=== PATIENT | male | born 1935 | race Hispanic/Latino ===

== ENCOUNTER 2016-08-12 06:44 | Day surgery (SDC) | payer MEDICARE, BC ==
[2015-11-27 10:29] VITALS: BMI 25.0
[2016-08-12 07:31] LABS: INR 1.1 (0.93-1.08); PARTIAL THROMBOPLASTIN TIME 30.1 Seconds (23.7-30.8)
[2016-08-12] MEDS ORDERED: cefTRIAXone 1 gm 100 ML IVPB STA (09:47)
[2016-08-12] MEDS ORDERED: cefTRIAXone (Rocephin) 1 gm Inj ONE (09:49)
[2016-08-12] MEDS ORDERED: Midazolam 2 MG/2 ML VIAL ONE (10:17)
[2016-08-12] MEDS ORDERED: Propofol 10 mg/ml Inj (20 ML) ONE (10:17)
[2016-08-12] MEDS ORDERED: Lactated Ringer's 1,000 ML IV SCH (11:15)
[2016-08-12 11:39] VITALS: O2SAT 98
--- NOTE | 2016-08-12 11:46 | OP ---
PROCEDURE DATE: 08/12/2016 PREOPERATIVE DIAGNOSES: Urethral stricture, bladder tumor history. POSTOPERATIVE DIAGNOSES: Urethral stricture, bladder tumor history. 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 PROCEDURE: Urethral dilatation, excision and fulguration of bladder tumor greater than 5 cm. SURGEON: Chris Alexandre M.D. ANESTHESIA: General endotracheal. DESCRIPTION OF OPERATION: After adequate general endotracheal anesthesia was given, the patient was placed in lithotomy, prepped and draped in usual manner. The patient had previously been known to buchanan ve a very small opening in his urethra from his stricture. I used a 7-Maldivian semi-rigid ureteroscope to introduce directly through the urethra. I could see the small opening. I could navigate through the small stricture with the ureteroscope, through the prostatic urethra into the bladder. Once in the bladder, a sensor wire 0.035 was passed through the ureteroscope and the ureteroscope was removed . A wire was then backloaded onto a 17-Maldivian cystourethroscope and I then used this to gently dilat e the stricture, enabling the 17-Maldivian scope to go into the bladder. Inspection of the bladder show ed a single effluxing right ureteral orifice with clear efflux, the patient having had a previous lef t nephroureterectomy. There were what appeared to be some low grade bladder tumors in the posterior wall, the anterior wall, the left lateral wall. The total area was over 5 cm. They did not appear l arge and papillary, but rather easily amenable to fulguration. There were some question or erythemat ous areas. This was biopsied and all the remaining visible bladder tumors were also fulgurated until they were completely removed with no visible tumor remaining. All irrigation fluid placed in the bl adder was returned. The abdomen was soft. There was no evidence of any bleeding. I might add, prio r to doing the fulguration and biopsy, I replaced the 17 Maldivian with a 22-Maldivian cystourethroscope wh ich was able to be passed through the strictured area since it had already been dilated. The above c omments about the operation itself were done through the 22-Maldivian cystourethroscope. Once the proce dure was completed, I could see the right orifice effluxing clear urine. A sensor wire was then pass ed through the 22-Maldivian cystourethroscope. The cystoscope was removed and an 18-Maldivian te-moak 2-wa y Sims was advanced over the sensor wire into the bladder with return of clear irrigant fluid. The wire was removed. The balloon was inflated. The patient was awakened and brought to recovery room i n good condition. Chris Alexandre MD cc: [id number] TT: 08/12/2016 11:45:43 tn
[2016-08-12 12:29] VITALS: TEMP 97.6
--- NOTE | 2016-08-12 12:31 | CON ---
DATE: 08/12/2016 HISTORY OF PRESENT ILLNESS: This 81-year-old male is admitted to the [facility] same day surgical area for further evaluation of hematuria with a history of bladder cancer, urethral strictu re and inability for Dr. Alexandre to do an outpatient cystoscopy in his office secondary to recurrent ure thral stricture. The patient has a past medical history of chronic hypertension, stable atherosclero tic heart disease, hyperlipidemia, allergic rhinitis, and history of kidney cancer with nephrectomy, history of prostate cancer and bladder cancer. He follows with Dr. Chris Alexandre, his urologist, who on recent office evaluation was unable to do an office cystoscopy to further evaluate his bladder can cer secondary to urethral stricture. The patient is admitted for further evaluation of the above. REVIEW OF SYSTEMS: HEAD: No headache or seizures. EYES: No change in visual acuity. EARS: No hearing loss. THROAT: No swallowing difficulty. NECK: No stiffness. CARDIOVASCULAR: History of stable atherosclerotic heart disease and chronic hypertension. No chest pain, no palpitation. PULMONARY: No cough, no hemoptysis. GASTROINTESTINAL: No hematemesis, no melena. GENITOURINARY: As per HPI. VASCULAR: No claudication. PSYCHOLOGICAL: No depression. NEUROLOGICAL: No knowledge of stroke. HEMATOLOGICAL: History of platelet clumping. The patient follows with Dr. Corky Marcum for this issue . OUTPATIENT MEDICATIONS: Include Lasix 40 mg p.o. daily, Flomax 0.4 mg p.o. daily, Zocor 20 mg p.o. d aily, metoprolol tartrate 50 mg b.i.d., Monopril 20 mg p.o. b.i.d., Flonase 1 spray to nostrils daily p.r.n. ALLERGIES: No known allergies to medication. SOCIAL HISTORY: He is a nondrinker, nonsmoker. 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 FAMILY HISTORY: Noncontributory. PHYSICAL EXAMINATION: VITAL SIGNS: Temperature 97.6, respirations 20, pulse 61, blood pressure 147/95 with a pulse ox of 9 7% on room air. HEENT: Head is normocephalic, atraumatic. Eyes: No icterus. Ears clear. Throat not injected. NECK: Supple. HEART: Regular S1, S2. No pathological rubs, murmurs, or gallops. LUNGS: Clear to auscultation. ABDOMEN: Soft, nontender, no palpable organomegaly, no rebound, no guarding, or tenderness. EXTREMITIES: No clubbing, no cyanosis, no edema. SKIN: Without rash. NEUROLOGIC: Intact. PSYCHOLOGICAL: Alert. VASCULAR: Legs warm to touch. LABORATORY DATA: PT/INR 1.10, PTT 30.1. White count 6000, hemoglobin 14.8, hematocrit 44.2, platele ts 96,000. Sodium 141, K 4.0, chloride 105, bicarbonate 28, BUN 23, creatinine 1.5, random blood sug ar was 99. All liver function testing was normal including bilirubin 1.0, AST 19, ALT 31, alkaline p hosphatase 55. EKG showed sinus rhythm with nonspecific ST-T wave changes. Chest x-ray showed no ac tive disease. IMPRESSION AND PLAN: An 81-year-old male with history of nephrectomy for renal cancer, history of bl adder cancer, history of prostate cancer, now with need for cystoscopy for surveillance of his bladde r cancer which was unable to be performed in Dr. Chris Alexandre's outpatient urological office secondar y to recurrent urethral stricture. The patient with comorbidities of benign prostate hypertrophy, hy perlipidemia, chronic hypertension, allergic rhinitis, stable atherosclerotic heart disease and plate let clumping. Of note, the platelet count has been reviewed by Dr. Corky Marcum from hematology who has cleared the patient for his cystoscopy today. The patient will undergo a urethral stricture dilatat ion, cystoscopy, and further recommendations will be reviewed with Dr. Chris Alexandre upon completion o f his testing today. The patient will continue on outpatient medications as outlined and I will foll ow his progress with Dr. Alexandre and Dr. Marcum. Diann Reyna MD cc: [phone] TT: 08/12/2016 12:30:31 Confirmation # [id number] Dictation # [id number] jay
[2016-08-12 13:58] VITALS: BP 147/75; PULSE 70; RESP 18
== END 2016-08-12 14:45 | disposition home or self-care (01) ==
LOC: SDS 06:44
PROVIDERS: ATTEND Urology
DX: C67.3 Malignant neoplasm of anterior wall of bladder (principal); C67.2 Malignant neoplasm of lateral wall of bladder; C67.4 Malignant neoplasm of posterior wall of bladder; N35.9 Urethral stricture, unspecified; E78.5 Hyperlipidemia, unspecified; I10 Essential (primary) hypertension; I25.10 Atherosclerotic heart disease of native coronary artery without angina pectoris; J30.9 Allergic rhinitis, unspecified; N40.0 Benign prostatic hyperplasia without lower urinary tract symptoms; Z85.46 Personal history of malignant neoplasm of prostate; Z85.528 Personal history of other malignant neoplasm of kidney; Z90.5 Acquired absence of kidney; Z85.51 Personal history of malignant neoplasm of bladder; D69.1 Qualitative platelet defects; I25.2 Old myocardial infarction
CPT/HCPCS: 36415; 52240; 85610; 85730; 88108; 88305; J0696; J2250; J2704; J3010; J7120 ×2

== ENCOUNTER 2017-04-14 06:55 | Day surgery (SDC) | payer MEDICARE, BC ==
[2017-04-14] MEDS ORDERED: cefTRIAXone (Rocephin) 1 gm Inj ONE (10:43)
[2017-04-14] MEDS ORDERED: Lidocaine 2% Jelly (Uro-Jet) ONE (10:43)
[2017-04-14] MEDS ORDERED: Propofol 10 mg/ml Inj (20 ML) ONE (10:44)
[2017-04-14] MEDS ORDERED: Morphine 2 mg/ml ISec IVP PRN (11:29)
[2017-04-14] MEDS ORDERED: Lactated Ringer's 1,000 ML IV SCH (11:30)
[2017-04-14 12:50] VITALS: TEMP 97.9
[2017-04-14 12:57] VITALS: BMI 25.0
[2017-04-14 13:22] VITALS: BP 160/69; PULSE 74; RESP 20; O2SAT 99
--- NOTE | 2017-04-14 23:29 | OP ---
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 SURGEON: Chris Alexandre MD TYPE OF ANESTHESIA: LMA. DESCRIPTION OF OPERATION: After adequate LMA anesthesia was given, the patient was placed in lithotomy, prepped and draped in the usual manner. I used a 7-Mauritian urethroscope that was advanced through the urethra. There was a pinpoint opening in the bulbous urethra. I was able to go through that opening through the prostatic urethra into the bladder. It was difficult to total visualize the bladder with a small urethroscope, but there was visible recurrence of tumor on the right floor. I then passed a sensor wire through the urethroscope, removed the urethroscope and attempted to pass a 17-Mauritian cystoscope to dilate the stricture under direct vision, but it was too stenotic. At this point, I removed the 17-Mauritian scope. I re-cystoscoped the patient with the urethroscope showed that the sensor wire was in good location, removed the 7-Mauritian urethroscope and then took a 12-Mauritian Sims catheter and took a small coring from its distal tip, so I could slide it over the sensor wire and was able to push it through the strictured area, it was a little tight but went through into the bladder with retain of the clear irrigant fluid. The balloon was inflated. The sensor wire was removed. The catheter was draining clear pura urine. The patient was awakened and brought to recovery room in good condition. Chris Alexandre MD
--- NOTE | 2017-04-14 23:58 | CON ---
DATE: 04/14/2017 REASON FOR EVALUATION: Medical clearance and management. HISTORY OF PRESENT ILLNESS: This 81-year-old male was examined at his bedside. He is on schedule for elective cystoscopy in the setting of recurrent urethral stricture and recurrent bladder cancer. The patient has multiple medical problems including chronic hypertension, atherosclerotic heart disease and chronic mild thrombocytopenia. The patient has undergone hematological workup with Dr. Corky Marcum in the past and he has been found to have large platelets and clumping as a cause of his thrombocytopenia. Of note, the patient has no spontaneous bleeding episodes. He is followed chronically by Dr. Chris Alexandre from Urology because of issues with renal cell cancer and nephrectomy in his past as well as prostate cancer and recurrent bladder cancer. The patient also has history of recurrent urethral stricture that manifests with difficulty in urination. The patient at present denies any gross hematuria and has had difficulties with outpatient cystoscopy in Urology office due to recurrent urethral stricture. PAST MEDICAL HISTORY: Also, significant for hyperlipidemia, allergic rhinitis as well as chronic hypertension and stable atherosclerotic heart disease, hyperlipidemia and chronic benign thrombocytopenia. REVIEW OF SYSTEMS: HEAD REVIEW: There are no headache or seizures. EYE REVIEW: No change in visual acuity. EAR REVIEW: No hearing loss. THROAT REVIEW: No swallowing difficulty. NECK REVIEW: No stiffness. CARDIOVASCULAR REVIEW: He has a history of stable atherosclerotic heart disease, chronic hypertension. There has been no chest pain, no palpitation. PULMONARY REVIEW: No cough. No hemoptysis. GI: No hematemesis. No melena. : As per HPI. VASCULAR: No claudication. PSYCHOLOGICAL: No depression. NEUROLOGICAL: No knowledge of stroke. HEMATOLOGICAL: He has a history of platelet clumping and follows with Dr. Corky Marcum test development engineer regarding this issue. OUTPATIENT MEDICATIONS: Include Lasix 40 mg p.o. daily, Flomax 0.4 mg p.o. daily, Zocor 20 mg p.o. daily, metoprolol tartrate 50 mg p.o. b.i.d., Monopril 20 mg b.i.d. and Flonase 1 spray to nostrils daily p.r.n. ALLERGIES: HE HAS NO KNOWN ALLERGIES TO MEDICATIONS. SOCIAL HISTORY: He is a current nondrinker, nonsmoker, non IV drug misuser. 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 FAMILY HISTORY: Noncontributory. PHYSICAL EXAMINATION: VITAL SIGNS: Temperature 97.9, respirations 18, pulse 63, blood pressure 141/78. Pulse ox 99% room air. HEAD: Normocephalic, atraumatic. EYES: No icterus. EARS: Clear. THROAT: Noninjected. NECK: Supple. HEART: Regular S1, S2. LUNGS: Clear. ABDOMEN: Soft. EXTREMITIES: No clubbing, no cyanosis, no edema. SKIN: Without rash. NEUROLOGIC: Intact. PSYCHOLOGIC: Alert. VASCULAR: Legs warm to touch. LABORATORY DATA: White count 6400, hemoglobin 15.1, hematocrit 46.0, platelets 92,000. Sodium 144, K 4.1, chloride 107, bicarb 27, BUN 25, creatinine 1.6, random blood sugar 98. Bilirubin 0.9, AST 20, ALT 26, alk phos 60. DIAGNOSTIC DATA: EKG showed normal sinus rhythm with a pulse rate of 63. IMPRESSION: An 81-year-old male with multiple medical problems as listed above, now on schedule for elective cystoscopy and dilatation of the urethral stricture as well as evaluation for recurrent bladder cancer in this gentleman with history of bladder cancer, urethral stricture, nephrectomy for renal cell cancer of the kidney as well as prostate cancer and comorbidities of atherosclerotic heart disease, hyperlipidemia, hypertension, chronic obstructive pulmonary disease and allergic rhinitis. PLAN: The plan is to proceed with cystoscopy, urethral dilatation, he may require a Sims catheter. Postprocedure, the patient will most likely be given postprocedure antibiotics while he has his indwelling Sims catheter and will be monitored by my office as an outpatient. All of the above was reviewed in detail with the patient and nursing and all questions were answered. Diann Reyna MD MTDOriana
== END 2017-04-14 15:35 | disposition home or self-care (01) ==
LOC: SDS 06:55
PROVIDERS: ATTEND Urology
DX: N35.9 Urethral stricture, unspecified (principal); D69.6 Thrombocytopenia, unspecified; E78.5 Hyperlipidemia, unspecified; I10 Essential (primary) hypertension; I25.10 Atherosclerotic heart disease of native coronary artery without angina pectoris; Z85.528 Personal history of other malignant neoplasm of kidney; Z85.51 Personal history of malignant neoplasm of bladder; Z85.46 Personal history of malignant neoplasm of prostate; Z90.5 Acquired absence of kidney; Z92.3 Personal history of irradiation; J30.9 Allergic rhinitis, unspecified; J44.9 Chronic obstructive pulmonary disease, unspecified
CPT/HCPCS: 52281; J0696; J2270; J2405; J2704; J3010; J7120

== ENCOUNTER 2017-05-18 06:57 | Day surgery (SDC) | payer MEDICARE, BC ==
[2017-05-11 12:20] VITALS: BMI 26.6
[2017-05-18] MEDS ORDERED: Propofol 10 mg/ml Inj (20 ML) ONE (10:12)
[2017-05-18] MEDS ORDERED: cefTRIAXone (Rocephin) 1 gm Inj ONE (10:24)
[2017-05-18] MEDS ORDERED: Gentamicin 80mg/50ml NS 80 MG/50 ML BAG IVPB ONE (11:06)
[2017-05-18] MEDS ORDERED: Gentamicin IV 80mg/50ml NS(PREMIX) IVPB ONE (11:10)
[2017-05-18] MEDS ORDERED: HYDROmorphone 0.5 mg/0.5 ml ISec IVP PRN (11:29)
[2017-05-18] MEDS ORDERED: Lactated Ringer's 1,000 ML IV SCH (11:30)
[2017-05-18] MEDS ORDERED: HYDROmorphone 0.5 mg/0.5 ml ISec ONE ×2 (11:58→12:33)
[2017-05-18] MEDS ORDERED: HYDROmorphone 0.5 mg/0.5 ml ISec IVP ONE ×2 (12:00→12:35)
[2017-05-18 13:16] VITALS: RESP 20
--- NOTE | 2017-05-18 13:38 | HP ---
PROPOSED PROCEDURE: Cystoscopy, transurethral resection of bladder tumor. PREOPERATIVE DIAGNOSIS: Bladder tumor. HISTORY AND PHYSICAL: This is an 81-year-old male originally seen by Dr. Alexandre who diagnosed a bladder tumor. However, the patient had a severe urethral stricture, and he was unable to pass the cystoscope. The patient has then had serial soft dilations with increasing size Sims catheters and presents now for further cystoscopy and possible transurethral resection of bladder tumor. PAST MEDICAL HISTORY: Significant for hypertension, atherosclerotic heart disease. MEDICATIONS FROM HOME: Include Cardizem, Flomax, fluticasone propionate, fosinopril, Lasix, metoprolol and Zocor. ALLERGIES: NO KNOWN DRUG ALLERGIES. PHYSICAL EXAMINATION: GENERAL: He is well nourished in no acute distress. NECK: Supple. CARDIAC: Shows positive S1, S2. EXTREMITIES: No edema. LUNGS: Respiratory effort is normal. ABDOMEN: Benign. GENITOURINARY: Sims in place draining clear. Phallus is normal. Scrotum is normal. IMPRESSION: The patient has been medically cleared for procedure by Dr. Gandhi. The plan is to proceed with cystoscopy and possible resection of bladder tumor. Ascencion Lara MD
[2017-05-18 14:31] VITALS: TEMP 97.5
[2017-05-18 15:43] VITALS: BP 137/68; PULSE 67; O2SAT 98
--- NOTE | 2017-05-19 08:16 | OP ---
PROCEDURE DATE: 05/18/2017 PREOPERATIVE DIAGNOSIS: Bladder tumor, urethral stricture. POSTOPERATIVE DIAGNOSIS: Bladder tumor, urethral stricture. PROCEDURE: Cystoscopy, transurethral resection of large bladder tumor, fulguration of large bladder tumors. SURGEON: Ascencion Lara MD TYPE OF ANESTHESIA: General. SPECIMENS: Bladder tumor chips were sent to Pathology. DRAINS: A 22-Beninese 3-way Sims catheter. COMPLICATIONS: There were none. DESCRIPTION OF PROCEDURE: After informed consent was obtained, the patient was taken to the operating room, placed on the operating table, anesthesia was administered. The patient received intravenous antibiotics prior to start of the procedure. The patient had a history of a urethral stricture and has been having a soft dilation. Currently had a 20-Beninese Sims catheter in place, which was removed prior to the procedure. A cystoscopy was first performed with a 22-Beninese cystoscope, it was placed in the patient's urethra, advanced proximally under direct vision. The urethral stricture in the prostatic urethra was noted. There was a small false passage as well underneath into the prostate. The urethra was opened and the cystoscope was able to be passed through the strictured area and into the bladder. Bladder was drained and then a full survey inspection was performed. There were multiple large papillary tumors located on the right posterior and lateral wall extending upward. There was a large tumor burden on the dome on the posterior and left posterior deal. The right ureteral orifice could be visualized and appeared clear. The left ureteral orifice could be visualized just adjacent to a papillary tumor. There was also apparent catheter reaction throughout the bladder. There was no tumor noted in the urethra with the strictured area. At this point, the cystoscope was withdrawn. A 26-Beninese resectoscope with a visualizing obturator was able to be passed into the bladder. The visualizing obturator was removed and a working loop was passed. Using the loop, the large amounts of tumor were resected down into the muscle layer at the dome and posterior wall as well as the right and left lateral deal. In total, there was over 6 cm area of tumor involving the bladder. During the resection any bleeding points encountered were controlled using electrocautery. When all visible tumor had been resected, bladder was irrigated and the chips were removed and sent to Pathology as specimen. The loop was changed to a rollerball electrode. The base of the tumor was then cauterized using rollerball electrode as well as any surrounding mucosa. There were multiple small areas of flat, slightly raised papillary tumor, which appeared low grade. This was also cauterized using the rollerball electrode. The bladder was then copiously irrigated and inspection was made for any bleeding points. Again bleeding points were controlled using the electrocautery with the rollerball. Final inspection revealed no remaining untreated tumor. There was good hemostasis. At this point, the procedure was completed, the bladder was drained. The cystoscope was removed. A 22-Beninese 3-way Sims catheter was passed and placed for continuous bladder irrigation. The patient tolerated procedure well. He was taken to the recovery room awake in stable condition. Ascencion Lara MD
--- NOTE | 2017-05-19 08:23 | CON ---
DATE: 05/18/2017 HISTORY OF PRESENT ILLNESS: This 81-year-old male was admitted to [facility] for elective cystoscopy and replacement of Sims catheter in the setting of urethral stricture and bladder cancer. The patient has a past medical history of left kidney resection for renal carcinoma, prostate cancer, bladder cancer and is under the ongoing urological followup with Dr. Chris Alexandre and Dr. Ascencion Lara. The patient recently was scheduled for cystoscopy for bladder cancer surveillance; however, this could not be accomplished because of the urethral stricture and the patient has had Sims catheters changed as an outpatient in the Urology office to allow passage of a cystoscope. The patient is admitted today for evaluation of the above. PAST MEDICAL HISTORY: Significant for chronic hypertension, stable atherosclerotic heart disease, hyperlipidemia and sinusitis. MEDICATIONS: The patient's outpatient medications include Cardizem, Flomax, Zocor, metoprolol, Lasix, Monopril and Flonase. ALLERGIES: The patient has no known allergies to medication. SOCIAL HISTORY: Current nondrinker, nonsmoker, non IV drug misuser. FAMILY HISTORY: Noncontributory. REVIEW OF SYSTEMS: HEAD: No headache or seizure. EYES: No change in visual acuity. EARS: No hearing loss. THROAT: No swallowing difficulty. NECK: No stiffness. CARDIAC: He has history of chronic atherosclerotic heart disease, stable and hypertension. PULMONARY: No cough. No hemoptysis. GI: No gastroesophageal reflux disease. : As per HPI. VASCULAR: No claudication. PSYCHOLOGICAL: Chronic anxiety. NEUROLOGICAL: No knowledge of stroke. HEME: Chronic thrombocytopenia secondary to platelet clumping. PHYSICAL EXAMINATION: VITAL SIGNS: Temperature 97.8, respirations 18, pulse 65, blood pressure 142/77, pulse ox 96% room air. HEAD: Normocephalic, atraumatic. EYES: No icterus. EARS: Clear. THROAT: Noninjected. NECK: Supple. HEART: Regular S1, S2. LUNGS: Clear. ABDOMEN: Soft. EXTREMITIES: No edema. SKIN: Without rash. NEUROLOGICAL: Intact. PSYCHOLOGICAL: Alert. VASCULAR: Legs warm to touch. LABORATORY DATA: White count 6400, hemoglobin 15.1, hematocrit 46.0, platelets 92,000. History of platelet clumping in the past with a normal manual platelet count under workup by Dr. Corky Marcum. Sodium 144, K 4.1, chloride 107, bicarb 27, BUN 25, creatinine 1.6, random blood sugar 98. All liver function testing was normal including bilirubin 0.9, AST 20, ALT 26 and alk phos 60. DIAGNOSTIC DATA: EKG showed a normal sinus rhythm, nonspecific ST-T wave changes, pulse 63. IMPRESSION AND PLAN: An 81-year-old male with history of urethral stricture, bladder cancer, history of kidney cancer, prostate cancer, now on schedule for cystoscopy and Sims catheter replacement with comorbidities as listed above. As discussed with the patient, he will be followed in my medical office postprocedure and to follow up with Dr. Ascencion Lara regarding recommendations post cystoscopy and instructions for Sims catheter. All of the above was discussed in detail with the patient, nursing. All questions were answered Diann Reyna MD ENIO
== END 2017-05-18 15:45 | disposition home or self-care (01) ==
LOC: SDS 06:57
PROVIDERS: ATTEND Urology
DX: C67.1 Malignant neoplasm of dome of bladder (principal); N35.9 Urethral stricture, unspecified; I10 Essential (primary) hypertension; E78.5 Hyperlipidemia, unspecified; I25.10 Atherosclerotic heart disease of native coronary artery without angina pectoris; Z85.46 Personal history of malignant neoplasm of prostate; Z85.528 Personal history of other malignant neoplasm of kidney
CPT/HCPCS: 52240; 88307; J0696; J1170; J1580; J2405; J2704; J3010; J7120 ×2

== ENCOUNTER 2017-06-12 13:24 | Inpatient (IN) | payer MEDICARE, BC ==
--- NOTE | 2017-06-12 13:34 | ED PDOC ---
Arrival/HPI - General Chief Complaint: Male Genitourinary - History of Present Illness Narrative History of Present Illness (Text): 06/12/17 13:33 Pt is a 82 yo M with PMH of HTN, CAD, HLD, left kidney resection for renal carcinoma, prostate CA, and bladder CA presents to ED with hematuria. Pt states that about 1 month ago he underwent cystoscopy with excision of bladder tumor. Pt states he had some hematuria post procedure but that eventually resolved. Pt states that hematuria has been on going for the past 2 days and for the last day he has also had suprapubic pain. Reyna was placed in the ED with evacuation of clots. Pt denied CP, SOB, n/v/d, abdominal pain, fevers, chills, HOLCOMB, or dizziness. PMD: Axel Uro: Jane ([place]) Past Medical History - Infectious Disease Hx of Infectious Diseases: None - Cardiac Hx Pacemaker: No - Pulmonary Hx Respiratory Disorders: No Hx Asthma: No Hx Chronic Obstructive Pulmonary Disease (COPD): No Hx Emphysema: No - Neurological Hx Paralysis: No - Renal Hx Renal Disorder: Yes - Hematological/Oncological Hx Blood Transfusions: No - Musculoskeletal/Rheumatological Hx Musculoskeletal Disorders: No (DUE TO PLANNED ANESTHESIA) - Gastrointestinal Hx Gastroesophageal Reflux: No - Psychiatric Hx Emotional Abuse: No Hx Physical Abuse: No Hx Substance Use: No - Anesthesia Hx Anesthesia Reactions: Yes (NAUSEA/VOMITING-RECEIVES ZOFRAN PRIOR TO PROCEDURES) Hx Malignant Hyperthermia: No - Suicidal Assessment Feels Threatened In Home Enviroment: No Family/Social History Family/Social History: No Known Family HX Smoking Status: Never Smoked Hx Alcohol Use: No Hx Substance Use: No Hx Substance Use Treatment: No Allergies/Home Meds Allergies/Adverse Reactions: Allergies No Known Allergies Allergy (Verified 11/12/15 09:38) Home Medications: Home Meds Medication Instructions Recorded Confirmed RX: Fluticasone Propionate 0.05 mg NS DAILY 11/12/15 05/18/17 RX: Fosinopril Sodium 20 mg PO BID 11/12/15 05/18/17 RX: Furosemide 40 mg PO DAILY 11/12/15 05/18/17 RX: Metoprolol Tartrate 50 mg PO BID 11/12/15 05/18/17 RX: Simvastatin 20 mg PO QPM 11/12/15 05/18/17 Tamsulosin HCl [Flomax] 0.4 mg PO QPM 11/12/15 05/18/17 [id number] CD [Cardizem CD] 240 mg PO DAILY 04/08/17 05/18/17 Nitrofurantoin Macrocrystals 100 mg PO BID 05/18/17 05/18/17 [Macrobid] Review of Systems - Review of Systems Constitutional: Normal Eyes: Normal ENT: Normal Respiratory: Normal Cardiovascular: Normal Gastrointestinal: Abdominal Pain (suprapubic) Genitourinary Male: Hematuria Musculoskeletal: Normal Skin: Normal Neurological: Normal Endocrine: Normal Hemo/Lymphatic: Normal Psychiatric: Normal Physical Exam Temperature: Afebrile Blood Pressure: Normal Pulse: Regular Respiratory Rate: Normal Mental Status: Positive for: Alert and Oriented X 3 - Systems Exam Head: Present: Atraumatic, Normocephalic Extroacular Muscles: Present: EOMI Conjunctiva: Present: Normal Mouth: Present: Moist Mucous Membranes Respiratory/Chest: Present: Clear to Auscultation. No: Accessory Muscle Use, Wheezes, Rales, Rhonchi Cardiovascular: Present: Regular Rate and Rhythm, Normal S1, S2. No: Murmurs, Rub, Gallop Abdomen: Present: Tenderness (suprapubic). No: Distention, Peritoneal Signs, Rebound, Guarding Genitourinary Male: Present: Other (Dark red urine per reyna catheter. Visible clots on seen on bladder irrigation.) Upper Extremity: Present: Normal Inspection Lower Extremity: Present: Normal Inspection Neurological: Present: GCS=15 Skin: Present: Warm, Dry, Normal Color Psychiatric: Present: Alert, Oriented x 3 Vital Signs Temp Pulse Resp BP Pulse Ox 06/12/17 13:24 98.4 F 81 20 172/91 H 94 L Medical Decision Making ED Course and Treatment: 06/12/17 15:[address] Osullivan, patient's urologist, agrees with CBI. Requests dose of antibiotics and recommends patient be kept under observation while patient is under PCP. (Valeriy Smalls) 06/12/17 14:33 Assessment: Pt is an 82 yo M presents to ED with hematuria and suprapubic pain found to have clots after bladder irrigation. Plan: - CBC - CMP - Coags - CXR - EKG - Urinalysis - IVF 06/12/17 15:[address] Lara, requests patient to be admitted under PMD. Continue CBI. Ceftriaxone IV. 06/12/17 15:[address] Reyna, agrees with Dr. Lara's assessment and accepts patient under her service. Requests blood and urine culture x1. ([place]) - Lab Interpretations Lab Results: 06/12/17 14:17 06/12/17 14:17 Lab Results 06/12/17 14:17: PT 12.4, INR 1.09 H, APTT 28.3 06/12/17 14:17: WBC 6.3, RBC 4.68, Hgb 13.5 L, Hct 42.3, MCV 90.4, MCH 28.8, MCHC 31.9, RDW 13.9, Plt Count 77 L, MPV 11.9 H, Gran % 82.8 H, Lymph % (Auto) 9.9 L, [place] % (Auto) 5.6, Eos % (Auto) 1.4 L, Baso % (Auto) 0.3, Gran # 5.17, Lymph # (Auto) 0.6 L, [place] # (Auto) 0.4, Eos # (Auto) 0.1, Baso # (Auto) 0.02 06/12/17 14:17: Sodium 143, Potassium 3.8, Chloride 105, Carbon Dioxide 25, Anion Gap 17, BUN 20, Creatinine 1.5, Est GFR ( Amer) 54, Est GFR (Non- Af Amer) 45, Random Glucose 159 H, Calcium 9.2, Magnesium 2.3 H, Total Bilirubin 0.7, AST 19, ALT 21, Alkaline Phosphatase 55, Total Protein 6.2, Albumin 3.6, Globulin 2.6, Albumin/Globulin Ratio 1.3 - RAD Interpretation Radiology Orders: 06/12/17 13:52 CXR [CHEST PORTABLE] [RAD] Stat - Medication Orders Current Medication Orders: Sodium Chloride (Sodium Chloride 0.9%) 1,000 mls @ 80 mls/hr IV .[id number] GUILLERMINA Last Admin: 06/12/17 15:16 Dose: 80 mls/hr eMAR Start Stop Document 06/12/17 15:16 LA (Rec: 06/12/17 15:25 LA [facility] [id number]) Intravenous Solution Start Date 06/12/17 Start Time 15:25 Ceftriaxone Sodium (Rocephin 1 Gram Ivpb) 1 gm in 100 mls @ 100 mls/hr IVPB ONCE ONE PRN Reason: Protocol Stop: 06/13/17 16:30 Discontinued Medications Oxycodone/Acetaminophen (Percocet 5/325 Mg Tab) 1 tab PO STAT STA Stop: 06/12/17 16:48 Disposition/Present on Arrival - Present on Arrival Any Indicators Present on Arrival: No History of DVT/PE: No History of Uncontrolled Diabetes: No Urinary Catheter: Yes History of Decub. Ulcer: No History Surgical Site Infection Following: None - Disposition Have Diagnosis and Disposition been Completed?: Yes Disposition Time: 16:54 - Disposition Diagnosis: Hematuria Condition: STABLE
[2017-06-12 14:41] LABS: BASO # 0.02 K/mm3 (0.0-2.0); BASO % 0.3 % (0.0-3.0); EOS # 0.1 (0.0-0.7); EOS % 1.4 % (1.5-5.0); GRAN # 5.17 (1.4-6.5); GRAN % 82.8 % (50.0-68.0); HEMOGLOBIN 13.5 g/dL (14.0-18.0); LYMPH # 0.6 (1.2-3.4); LYMPH % 9.9 % (22.0-35.0); MEAN CELL VOLUME 90.4 fl (80.0-105.0); MEAN CORPUSCULAR HEMOGLOBIN 28.8 pg (25.0-35.0); MEAN CORPUSCULAR HGB CONC 31.9 g/dl (31.0-37.0); MEAN PLATELET VOLUME 11.9 fl (7.0-11.0); MONO # 0.4 (0.1-0.6); MONO % 5.6 % (1.0-6.0); RBC 4.68 10^6/uL (3.5-6.1); RED CELL DISTRIBUTION WIDTH 13.9 % (11.5-14.5); WHITE BLOOD COUNT 6.3 10^3/ul (4.5-11.0)
[2017-06-12 14:51] LABS: ALB/GLOB RATIO 1.3 (1.1-1.8); ALBUMIN 3.6 g/dL (3.0-4.8); CALCIUM 9.2 mg/dL (8.4-10.5); MAGNESIUM 2.3 mg/dL (1.7-2.2)
[2017-06-12 14:52] LABS: INR 1.09 (0.93-1.08); PARTIAL THROMBOPLASTIN TIME 28.3 Seconds (25.1-36.5); PROTHROMBIN TIME 12.4 SECONDS (9.4-12.5)
[2017-06-12] MEDS: Sodium Chloride 0.9% 1,000 ML IV SCH (15:16)
--- NOTE | 2017-06-12 15:41 | RAD ---
HISTORY: h/o CAD COMPARISON: 07/30/2016 FINDINGS: LUNGS: The lungs are well inflated and clear. PLEURA: No significant pleural effusion identified, no pneumothorax apparent. CARDIOVASCULAR: Normal. OSSEOUS STRUCTURES: No significant abnormalities. VISUALIZED UPPER ABDOMEN: Normal. OTHER FINDINGS: None. IMPRESSION: No active pulmonary disease.
[2017-06-12] MEDS ORDERED: Oxycodone/Acetaminophen 5/325 mg Tab PO STA (16:47)
[2017-06-12] MEDS ORDERED: cefTRIAXone 1 gm 1 GM/100 ML BAG IVPB ONE (17:37)
[2017-06-12] MEDS: Oxycodone/Acetaminophen 5/325 mg Tab PO SCH (23:54)
[2017-06-13] MEDS: Sodium Chloride 0.9% 1,000 ML IV SCH ×2 (06:27→17:56)
[2017-06-13] MEDS: Oxycodone/Acetaminophen 5/325 mg Tab PO SCH ×3 (07:05→17:51)
--- NOTE | 2017-06-13 07:11 | HP ---
DATE OF EXAM: 06/12/2017 HISTORY OF PRESENT ILLNESS: This 82-year-old male was examined in the [facility] ER where he is being admitted for gross hematuria with clots. He is an 82-year-old male with known history of bladder cancer, who recently underwent cystoscopy and urethral dilatation of the urethral stricture under the direction of Dr. Ascencion Lara from Urology. The patient states that after cystoscopy, he had a Sims catheter maintained because of balloon dilatation of the urethral stricture and after the Sims was discontinued several weeks ago, there were no issues. However, last evening, he noticed the onset of gross hematuria. Today, there were clots. He came to the emergency room and is being admitted for problems related to the above. 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 Patient has a history of nephrectomy for renal cell carcinoma in the past, prostate cancer and bladder cancer. ALLERGIES: HE HAS NO KNOWN ALLERGIES TO MEDICATION. 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 FAMILY HISTORY: Noncontributory. REVIEW OF SYSTEMS: CONSTITUTIONAL; No fever or chills. HEENT: Head review, no headache or seizures. Eye review, no change in visual acuity. Ear review, no hearing loss. Throat review, no swallowing difficulty. NECK REVIEW: No stiffness. CARDIAC REVIEW: No chest pain, no palpitation. History of stable atherosclerotic heart disease status post coronary artery stents and myocardial infarction in the distant past. PULMONARY: No hemoptysis. GASTROINTESTINAL: No dyspepsia. GENITOURINARY: As per HPI. There is a history of renal cancer, nephrectomy, prostate cancer and bladder cancer. VASCULAR: No claudication. PSYCHOLOGICAL: No depression. NEUROLOGICAL: No knowledge of stroke. SKIN: No rash. HEMATOLOGICAL: Chronic stable thrombocytopenia secondary to platelet clumping. PHYSICAL EXAMINATION: VITAL SIGNS: Temperature 98.4, respirations 20, pulse 81, blood pressure 172/91. Pulse ox 98% room air. HEENT: Head normocephalic, atraumatic. Eyes: No icterus. Ears: Clear. Throat: Noninjected. NECK: Supple. HEART: Regular S1, S2. LUNGS: Clear. ABDOMEN: Soft. EXTREMITIES: No edema. SKIN: Without rash. NEUROLOGICAL: Intact. PSYCHOLOGICAL: Alert and oriented x3. VASCULAR: Legs warm to touch. He has a Sims catheter and he is receiving chronic bladder irrigation at present. The bladder fluid is bloody in nature. LABORATORY DATA: White count 6300, hemoglobin 13.5, hematocrit 42.3, platelets 77,000. PT/INR 1.09, PTT 28.3. Sodium 143, K 3.8, chloride 105, bicarb 25, BUN 20, creatinine 1.5, random blood sugar 159. Magnesium 2.3. Bilirubin 0.7, AST 19, ALT 21, alk phos 55. Chest x-ray was reviewed. Lungs were well inflated, clear. There was no pleural effusion noted. No pneumothorax, no evidence of pneumonia or pulmonary infiltrate. 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 This case was reviewed in detail with Dr. Valeriy Smalls from the emergency room as well as Dr. Ascencion Lara from Urology. PLAN: The plan will be to have patient with chronic bladder irrigation. He is ordered to have a soft, bland, heart-healthy diet. Blood and urine cultures have been ordered. I have instructed his nurse to give him one dose of Percocet stat 5-325 one p.o. q. 6 hours p.r.n. severe pain. He will receive Rocephin 1 g IV, 0.9 saline at 80 mL/hour and repeat basic metabolic panel and manual platelet count will be performed in the a.m. I have asked Dr. Ascencion Lara to evaluate the patient and outline any further testing he may deem necessary for this patient and all of the above was reviewed in detail with the patient, nursing, Dr. Smalls and greater than 75 minutes was spent in the care management, review of x-rays and coordination of care and ordering of medication and orders for this patient today. All questions were answered. Diann Reyna MD [facility] # [id number] MTDOriana
[2017-06-13 07:28] LABS: CALCIUM 8.9 mg/dL (8.4-10.5)
[2017-06-13] MEDS ORDERED: diltiaZEM 240 mg/24 Hours CD Cap PO SCH ×2 (09:00→10:30)
[2017-06-13] MEDS: Nitroglycerin 2% Ointment Foilpak UD TOP PRN (10:00)
--- NOTE | 2017-06-13 10:13 | CARD ---
APPROVED REPORT EKG Measurement Heart [id number] <Conclusion> Normal sinus rhythm PRWP NSSTW changes No change except the rate is faster
--- NOTE | 2017-06-13 12:46 | US ---
PROCEDURE: Ultrasound of the Kidneys HISTORY: azotemia COMPARISON: None available. TECHNIQUE: Sonogram of the kidneys. FINDINGS: RIGHT KIDNEY: Measures: 11.3 cm. Normal in size, contour and echogenicity. No calculus. Minimal dilatation of the collecting system. No martha hydronephrosis. Lower pole cortical cyst, 2.0 x 1.7 by 1.7 cm. Possible curvilinear mural calcification. No solid mass. LEFT KIDNEY: Status post left nephrectomy OTHER FINDINGS: None. IMPRESSION: Status post left nephrectomy. 2 cm right lower pole renal cortical cyst with curvilinear mural calcification. No martha hydronephrosis per
[2017-06-13] MEDS ORDERED: cefTRIAXone 1 gm 1 GM/100 ML BAG IVPB ONE (15:31)
--- NOTE | 2017-06-13 17:07 | PN ---
DATE: 06/13/2017 SUBJECTIVE: This 82-year-old male was examined at his bedside. His son, Fer was present for the interview. This case was also reviewed in detail with his nurse, Yun. Patient was lying in bed. He states that he still has occasional discomfort secondary to the indwelling Sims catheter with constant bladder irrigation. He denied any fever, chills, chest pain, or shortness of breath. PHYSICAL EXAMINATION: VITAL SIGNS: Noted to have a temperature of 98.3, respirations 22, pulse 92, and blood pressure 177/93 with a pulse ox of 95% on room air. HEENT: Head is normocephalic, atraumatic. Eyes: No icterus. Ears: Clear. Throat: Noninjected. NECK: Supple. HEART: Regular, S1, S2. LUNGS: Clear. ABDOMEN: Soft. EXTREMITIES: No clubbing, no cyanosis, no edema. SKIN: No rash. VASCULAR: Legs warm to touch. PSYCHOLOGIC: Alert and oriented x3. NEUROLOGIC: Grossly intact. LABORATORY DATA: White count 6300, hemoglobin 13.5, hematocrit 42.3, and platelet manual count 90,000. PT/INR 1.09, PTT 28.3. Sodium 142, K 4.4, chloride 110, bicarb 20. BUN 31, creatinine 3.6, previously 20 BUN and creatinine of 1.5. Random blood sugar of 123. Calcium 8.9. All liver function testing was normal including bilirubin 0.7, AST 19, ALT 21, and alk phos 55. Chest x-ray was reviewed and showed no evidence of congestive heart failure, infiltrate, pleural effusion, or pneumonia. EKG showed normal sinus rhythm with nonspecific ST-T wave changes. A stat renal ultrasound was ordered and reviewed, and it showed evidence of right kidney normal in size, contour, and echogenicity with no stone and no hydronephrosis. A lower pole cortical cyst was noted measuring 2 x 1.7 x 1.7 cm. No solid mass was noted. The patient is status post left nephrectomy. IMPRESSION: An 82-year-old male with history of left nephrectomy for renal cell cancer, also with history of prostate cancer and bladder cancer, now with martha hematuria, receiving constant bladder irrigation and also with comorbidities of stable atherosclerotic coronary artery disease with stents, hypertension, history of hyperlipidemia, and chronic sinusitis. PLAN: The plan is discussed with the patient, family, Nursing; will be to maintain CBI, awaiting consultation by Dr. Ascencion Lara from Urology. The patient is ordered to have a soft bland, heart-healthy diet. He continues on Zestril 20 mg p.o. b.i.d., Tylenol 650 mg p.o. q. 6 hours p.r.n. mild pain, 0.9 saline at 80 mL/hour, Percocet one tablet 5/325 q. 6 hours p.r.n. severe pain, nitroglycerin 1 inch to chest wall q. 4 hours if systolic blood pressure is greater than 160 or diastolic blood pressure is greater than 100, Lopressor 50 mg p.o. b.i.d., Lipitor 10 mg p.o. at bedtime, Flomax 0.4 mg p.o. daily, and Cardizem 240 mg p.o. daily. He is ordered to have a repeat basic metabolic panel in the a.m. Blood and urine cultures have been sent. He has been treated with IV Rocephin in the ER and additional testings will be entertained based on clinical course and urology evaluation. Greater than 35 minutes was spent in the care management, review of x-rays, labs, medication, and ordering of testing and medication for this patient today. All questions were answered. Diann Reyna MD MTDD
[2017-06-14] MEDS: Oxycodone/Acetaminophen 5/325 mg Tab PO SCH ×5 (04:12→17:36)
[2017-06-14 08:24] LABS: CALCIUM 8.4 mg/dL (8.4-10.5)
[2017-06-14] MEDS: diltiaZEM 240 mg/24 Hours CD Cap PO SCH (09:55)
--- NOTE | 2017-06-14 12:49 | CT ---
PROCEDURE: CT scan abdomen and pelvis dated 06/14/2017 HISTORY: Azotemia. Hematuria. COMPARISON: Comparison made with CT scan abdomen pelvis dated 03/13/2015 TECHNIQUE: Contiguous axial images of the abdomen and pelvis performed of without oral or intravenous contrast material. Coronal and sagittal. Coronal and Sagittal reformats generated. Radiation dose: Total exam DLP = This CT exam was performed using one or more of the following dose reduction techniques: Automated exposure control, adjustment of the mA and/or kV according to patient size, and/or use of iterative reconstruction technique. FINDINGS: LOWER THORAX: Small right-sided effusion and mild right basilar atelectasis. . Small calcifications are seen within the atelectatic lung. Tiny left sided effusion and minimal left basilar atelectasis. LIVER: The liver exhibits relatively normal size measuring approximately 14.7 cm in CC dimension. No obvious hepatic masses or collections seen on this noncontrast study. GALLBLADDER AND BILE DUCTS: Gallbladder is physiologically distended. No evidence of intraluminal gallbladder calculi. PANCREAS: The pancreas is poorly delineated due to some crossing streak and beam hardening artifact. The pancreas appears slightly atrophic. No obvious pancreatic masses or collections. SPLEEN: Spleen exhibits normal size and attenuation pattern without mass collection or calcification. . Numerous on serpiginous vascular structures seen in the left upper quadrant of the abdomen adjacent to the spleen and stomach; findings may represent varices. ADRENALS: There is a small low-attenuation nodule lateral limb right adrenal gland which measures approximately 12.8 mm. KIDNEYS AND URETERS: Status post left nephrectomy again noted. . There are several small low-attenuation foci seen in the upper mid and lower pole right kidney felt to represent renal cysts. Followup renal ultrasound could be performed to confirm There is mild dilatation of the right renal and left ureter however no definitive evidence of the ureteral calculi ; rule out mild partial obstruction at the insertion site of the left ureter along the urinary bladder/bladder wall or bladder outlet obstruction BLADDER: The evaluation of the bladder is limited on due to the presence of an in situ unclamped Sims catheter. The urinary bladder is collapsed about the Sims catheter balloon. Small amount of air is present within the urinary bladder likely due to instrumentation with a Sims catheter. There is mild asymmetrical bladder wall thickening in part due to collapse however the possibility of a cystitis or other intrinsic/invasive wall lesion not excluded. Clinical correlation recommended REPRODUCTIVE: Multiple small radiation implant seeds are seen distributed throughout the prostate gland. APPENDIX: The appendix is not seen with complete certainty however no radiographic evidence of acute appendicitis. BOWEL: Evaluation of the bowel is limited due to the lack of oral contrast material. Stomach is distended with food debris liquid and air. Visualized loops of small bowel exhibit normal contour and caliber. No evidence of acute mechanical small bowel obstruction. There is a relatively large amount of stool seen within the cecum and at ascending: Consistent with localized fecal retention/constipation. Air is seen throughout the transverse colon. The descending and sigmoid colon relatively collapsed. Few scattered colonic diverticula seen along the sigmoid and descending colon and possibly the right colon however no radiographic evidence of acute diverticulitis. PERITONEUM: Unremarkable. No fluid collection. No free air. Small fat containing bilateral inguinal hernias. LYMPH NODES: Unremarkable. No enlarged lymph nodes. VASCULATURE: Unremarkable. No aortic aneurysm. BONES: Re- demonstrated is a chronic compression deformity superior T11 endplate. Multilevel degenerative spondylosis of the thoracic and lumbar spine. Old healed fracture deformities left 9th and 10th posterior rib fractures. OTHER FINDINGS: None. IMPRESSION: Small right-sided effusion and minor right basilar atelectasis. Tiny left effusion and minimal left basilar atelectasis. The findings suggest left upper abdominal varices. Clinical correlation recommended. Status post left nephrectomy. There are multiple rounded low-attenuation foci cysts throughout the right kidney likely representing renal cysts. . Mild right-sided hydronephrosis. Rule out bladder outlet obstruction versus is on partial obstruction at the level of the insertion site UVJ at the bladder. Bladder wall is thickened in part due to collapse surrounding unclamped Sims catheter however rule out cystitis versus other intrinsic/invasive bladder wall lesion Multiple radio-opaque radiation implant seeds distributed throughout the prostate gland. Small hypodense right adrenal nodule. The diverticulosis without radiographic evidence of acute diverticulitis. See above discussion for additional details and findings.
--- NOTE | 2017-06-14 17:11 | PN ---
DATE: 06/14/2017 SUBJECTIVE: This 82-year-old male was examined at his bedside in the presence of his son, Fer and this case was reviewed in detail with the patient, family, his nurse, Yumiko Ray. I have also reviewed this case in detail with Dr. Ascencion Lara from Urology. The patient remains at bedrest. He is receiving constant bladder irrigation CBI with clearing of urine. On admission, the patient was admitted with blood clots and gross hematuria. The patient denies any fever, chills, chest pain or shortness of breath. PHYSICAL EXAMINATION: VITAL SIGNS: At present, temperature is 98.6, respirations 18, pulse 78 and blood pressure 159/80 with a pulse ox of 94% on room air. HEENT: His head is normocephalic, atraumatic. Eyes: No icterus. Ears: Clear. Throat: Noninjected. NECK: Supple. HEART: Regular S1, S2. LUNGS: Clear. ABDOMEN: Soft. EXTREMITIES: No edema. SKIN: Without rash. NEUROLOGICAL: Intact. PSYCHOLOGICAL: Alert. VASCULAR: Legs warm to touch. LABORATORY DATA: Showed white count 6300, hemoglobin 13.5, hematocrit 42.3, platelets 90,000. PT/INR 1.09, PTT 28.3. Sodium 140, K 5.4, chloride 104, bicarb 26, BUN 50, creatinine 7.0, random blood sugar 116. IMPRESSION: This is an 82-year-old male with recent outpatient cystoscopy by Dr. Ascencion Lara for recurrent bladder cancer, now admitted with gross hematuria, blood clots in his urine in the setting of acute renal failure in a gentleman with history of left nephrectomy for renal cell carcinoma, prostate cancer and bladder cancer and now with worsening azotemia, rule out obstruction despite yesterday's renal ultrasound showing minimal hydronephrosis of his right kidney. Also with history of thrombocytopenia secondary to platelet clumping and comorbidities of chronic hypertension, stable atherosclerotic heart disease. PLAN: As discussed with the patient, family, nursing and Dr. Lara will be to order an abdominal pelvic CT with no oral or IV contrast to rule out obstructive uropathy. Patient will continue on medication including Cardizem, Flomax, Lipitor, metoprolol, nitroglycerin ointment to chest wall, IV fluids and Zestril will be withheld pending clarification of renal function. He continues on a heart-healthy diet, CBI irrigation, soft bland heart-healthy diet with orders for basic metabolic panel and hemoglobin/hematocrit in a.m. and of note, blood culture showed no growth at 24 hours. This patient does show clinical signs of obstructive uropathy. He maybe in need of a percutaneous nephrostomy as per discussion with Dr. Ascencion Lara from Urology. Greater than 35 minutes was spent in the care management, review of labs, x-rays, medications and orders for this patient today including consultation with Dr. Lara and discussion with nursing and family. All questions were answered. Diann Reyna MD MTDD
[2017-06-14] MEDS: Sodium Chloride 0.9% 1,000 ML IV SCH (17:40)
[2017-06-15] MEDS: Oxycodone/Acetaminophen 5/325 mg Tab PO SCH ×5 (00:25→20:20)
[2017-06-15] MEDS: Nitroglycerin 2% Ointment Foilpak UD TOP PRN ×3 (05:54→20:20)
[2017-06-15 08:10] LABS: CALCIUM 8.7 mg/dL (8.4-10.5)
--- NOTE | 2017-06-15 08:26 | CON ---
DATE: 06/14/2017 CHIEF COMPLAINT: Hematuria. HISTORY OF PRESENT ILLNESS: This is an 82-year-old male who is well known to me. The patient has a history of, I believe, a left nephrectomy for transitional cell carcinoma. He says he had multiple recurrent bladder tumors and a severe urethral stricture. Few weeks ago, the patient underwent cystoscopy with transurethral resection and fulguration of bladder tumors. He was doing well at home, voiding with no difficulty and developed gross hematuria yesterday. The patient was told to come to my office; however, he felt he could not get there and he called 911 and was brought to the hospital. In the emergency room, Sims catheter was inserted, some small amount of clots were irrigated out and the patient was started on CBI. The patient has remained on CBI which is running clear at this time. The patient has been found to have an elevated kidney function tests and he was set down for an abdominopelvic CT. He had a renal ultrasound done yesterday which showed there is minimal dilatation in the collecting system on the right with no martha hydronephrosis, no solid mass. The patient reports he is currently feeling somewhat better. He denies any fever, chills, nausea or vomiting. PAST MEDICAL HISTORY: Significant for bladder cancer, kidney cancer, renal insufficiency, hypertension, coronary artery disease, atherosclerotic heart disease. MEDICATIONS: Currently include Cardizem, Flomax, Lipitor, Lopressor, nitro paste and Percocet, IV fluids, Zestril, Tylenol and Zofran. ALLERGIES: NO KNOWN DRUG ALLERGIES. FAMILY HISTORY: Noncontributory. SOCIAL HISTORY: Positive for smoking in the past, although quit. Denies EtOH use. REVIEW OF SYSTEMS: The patient reports gross hematuria. He reports some weakness and some shortness of breath. Denies any abdominal pain, nausea or vomiting. Denies any fever or chills. Other systems are negative. PHYSICAL EXAMINATION: GENERAL: The patient is awake, alert and answering questions. VITAL SIGNS: He is afebrile. Temperature of 98.6, pulse of 78, BP 159/80, respirations 18. NECK: His neck is supple. There is no adenopathy. CHEST: Revealed normal inspiratory effort. CARDIAC: Showed a positive S1, S2. There is mild peripheral edema noted. ABDOMEN: The abdomen is soft, nontender, nondistended. There is no hepatosplenomegaly. There is no costovertebral angle tenderness. The bladder is not palpably distended. GENITOURINARY: Phallus is normal. There is a 3-way Sims catheter in place which is draining very lightly tinged urine on slow CBI. Scrotum is normal. Testes bilaterally descended, nontender, no masses. Epididymis are normal. EXTREMITIES: There is no cyanosis. There is mild edema. LABORATORY DATA: WBC count 6.3, platelet count of 77. BUN was 20 on admission and now has gone up to 50. Creatinine has risen from 1.5 to 7. Blood cultures are no growth after 24 hours. Radiologic exam, ultrasound with minimal fullness. IMPRESSION AND PLAN: This is an 82-year-old male with recurrent bladder cancer with gross hematuria. Currently stable with Sims catheter in place which is draining clear on slow continuous bladder irrigation. The source of the hematuria is likely the scabs from prior transurethral resection falling off. The patient also has a history of thrombocytopenia and other myeloproliferative disorder. His platelet count continues to fall and I would recommend platelet transfusion as this could be contributing to him bleeding as well. As for his renal function, this is unclear, a CT scan has been ordered and we will need to check. If there is any significant dilatation of the collecting system, the plan would be to consult Dr. Patrice Sanchez for a percutaneous nephrostomy. Having recently looked in the patient's bladder, I think it would be very difficult to find his ureteral orifice, as he had a fair amount of tumor which was all resected and cauterized. I think would be beneficial at this point, also to let the inflammation and healing in his bladder occur and see if his renal function resolves with appropriate renal drainage. If his renal function does not improve then we need to consider further issues with Dr. Reyna regarding his overall kidney function. Thank you for allowing me to participate in the care of this patient. We will follow him with you. Ascencion Lara MD
[2017-06-15] MEDS ORDERED: Sod Polystyrene Sulf 15 gm/60 ml Susp PO ONE ×2 (08:29→10:22)
[2017-06-15] MEDS: diltiaZEM 240 mg/24 Hours CD Cap PO SCH (10:40)
[2017-06-15] MEDS ORDERED: Sodium Chloride 0.9% 1,000 ML IV SCH ×2 (10:40→18:50)
[2017-06-15] MEDS ORDERED: Dextrose 50% SYRINGE Inj (50 ml) IVP ONE (12:39)
[2017-06-15] MEDS ORDERED: Sodium Bicarbonate (8.4%) 50 Meq Syringe IVP ONE (12:42)
[2017-06-15] MEDS ORDERED: Insulin Regular 1 UNITS/0.01 ML ML IVP ONE (12:42)
[2017-06-15 15:58] LABS: CALCIUM 8.6 mg/dL (8.4-10.5)
[2017-06-15] MEDS ORDERED: Lidocaine 2% Inj (20ml) ONE (17:02)
[2017-06-15] MEDS ORDERED: Midazolam 2 MG/2 ML VIAL ONE ×2 (17:03→18:14)
[2017-06-15] MEDS ORDERED: Iodixanol 320 MG/ML 100 ML BOTTLE IV ONE ×2 (17:03→18:28)
[2017-06-15] MEDS ORDERED: Iodixanol 320 MG/ML 200 ML BOTTLE IV ONE (17:03)
[2017-06-15] MEDS ORDERED: HEPARIN SODIUM/NS 2,000 ML IV ONE (17:03)
--- NOTE | 2017-06-15 19:05 | PN ---
DATE: 06/15/2017 SUBJECTIVE: This 82-year-old male was examined at the bedside and this case was reviewed in detail with himself, his nurse Yumiko Álvarez, registered nurse, nurse practitioner, family, and Dr. Ascencion Lara from Urology and Dr. Patrice Sanchze from Interventional Radiology. The patient's CBI bladder irrigation fluid has been discontinued. Unfortunately, he has had no urine output via his Sims catheter since the discontinuation of CBI. The patient's abdominopelvic CT was reviewed with Dr. Patrice Sanchez and is consistent with a mild right hydronephrosis in a gentleman with a solitary right kidney status post left nephrectomy for renal cell cancer in the distant past. Also notable on the review of his abdominopelvic CT was bladder wall inflammatory changes status post recent fulguration of bladder cancer by Dr. Ascencion Lara in the recent past. The patient remains weak and deconditioned, is lying in bed, but denies any fever, chills, chest pain, or shortness of breath. PHYSICAL EXAMINATION: VITAL SIGNS: Temperature is 97.7, respirations 22, pulse 76, and blood pressure 177/92 with a pulse ox of 95% on room air. HEENT: Head normocephalic, atraumatic. Eyes: No icterus. Ears: Clear. Throat: Noninjected. NECK: Supple. HEART: Regular, S1, S2. LUNGS: Clear. ABDOMEN: Soft. EXTREMITIES: No edema. SKIN: Without rash. NEUROLOGICAL: Intact. PSYCHOLOGICAL: Alert. VASCULAR: Legs warm to touch. LABORATORY DATA: Hemoglobin 12, hematocrit 37.7. PT/INR 1.09, PTT 28.3. Sodium 138, K 5.7, chloride 102, bicarb 20. BUN 68, creatinine 9.3. Random blood sugar 126. Calcium 8.7. All liver function testing was normal including bilirubin 0.7, AST 19, ALT 21, and alk phos 55. IMPRESSION: An 82-year-old male with dywpu-oe-fundhru renal insufficiency in the setting of right hydronephrosis, having been admitted with gross hematuria and bladder clots status post cystoscopy and bladder cell cancer fulguration in the recent past by Dr. 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 The plan as discussed with the patient, family at bedside, Nursing, and Dr. Patrice Sanchez and Dr. Ascencion Lara from interventional Radiology and Urology will be to give this patient Kayexalate as well as one dose of Lasix 80 mg IV, one ampule of D50, 5 units of regular insulin IV, and one ampule of bicarbonate while readying the patient for percutaneous nephrostomy attempts in the interventional vascular lab. It is our plan that if the patient's renal function does not improve, he will be scheduled for [place] catheter placement for possible temporary dialysis and also will continue on medication including Zofran, 0.9 saline, MiraLax, Lopressor, Lipitor, Flomax, and Cardizem CD. The patient also has an order for 1 inch of nitro paste q. 4 hours to chest wall p.r.n. accelerated hypertension if systolic blood pressure is greater than 160 or diastolic blood pressure is greater than 100. Blood culture showed no growth at 48 hours, and the patient is on schedule for repeat basic metabolic panel in the a.m. Greater than 35 minutes was spent in the care management, review of x-rays, labs, medication, orders, consultations with Dr. Patrice Sanchez, and family at bedside. All questions were answered. Diann Reyna MD MTD[facility]ana
--- NOTE | 2017-06-15 19:39 | VASCULAR ---
PROCEDURE: 1. Right antegrade pyelogram. 2. Right percutaneous nephrostomy tube placement. HISTORY: Advanced bladder carcinoma. Solitary right kidney. Acute renal failure with right hydronephrosis. Needs nephrostomy tube. PHYSICIAN(S): Patrice Sanchez MD. TECHNIQUE: The relative risks and indications of the procedure were explained to the patient and his daughter and consent obtained. The patient was placed prone on the arteriogram table and the right back and flank prepped and draped in the usual sterile fashion. Conscious sedation and monitoring were provided throughout the procedure by a nurse. Two passeswith a 21-gauge needle was performed and the right renal pelvis was entered. Serosanguineous urine was aspirated. Contrast was injected and an antegrade pyelogram performed. A second puncture site involving a right lower polecalyx was selected for tube placement. 1% Xylocaine was used to anesthetize the skin and soft tissues. An 18-gauge needle was advanced under fluoroscopy into a right lower pole infundibulum. A 0.035 angled guidewire was coiled within the renal pelvis. Sequential dilatation was performed with subsequent placement of a 12French nephrostomy tube. The tube was secured and placed to gravity drainage. The patient tolerated the procedure well. FINDINGS: Mild hydronephrosis is noted. Interestingly, contrast flows readily into the mildly dilated right Ritter. Contrast flows into a markedly thickened and irregular bladder with a Sims catheter. IMPRESSION: 1.Mild right hydronephrosis. Contrast flows readily into a mildly dilated right ureter and distorted bladder 2. Successful placement of a 12 Mong[place]ian right nephrostomy tube.
[2017-06-15] MEDS ORDERED: Nitroglycerin 2% Ointment Foilpak UD TOP ONE (20:16)
[2017-06-15] MEDS ORDERED: Oxycodone/Acetaminophen 5/325 mg Tab ONE (20:17)
[2017-06-16] MEDS: Oxycodone/Acetaminophen 5/325 mg Tab PO SCH (00:27)
[2017-06-16 01:45] VITALS: RESP 20
[2017-06-16 01:48] VITALS: O2SAT 94
--- NOTE | 2017-06-16 02:38 | CON ---
DATE: 06/15/2017 CHIEF COMPLAINT/HISTORY OF PRESENT ILLNESS: This is an 82-year-old gentleman who was admitted for hematuria and acute renal failure. He is status post left nephrectomy in the distant past for malignancy. He recently underwent a transurethral resection and fulguration of bladder tumors by Dr. Lara. He had been doing well post-procedure, but developed gross hematuria the day before admission. He came to the ER and cleared the hematuria with continuous bladder irrigation. His creatinine has risen precipitously. His baseline is 1.5. He is now approximately 9. CT scan demonstrates [id number] right hydronephrosis and the ureter can be followed to the level of the UVJ. No obvious stone is seen. The bladder is circumferentially thickened. PAST MEDICAL HISTORY: Significant for coronary artery disease and stents, hypertension, and renal insufficiency. ALLERGIES: HE HAS NO DRUG ALLERGIES. ASSESSMENT AND PLAN: I reviewed the films with Dr. Reyna. A nephrostomy tube will be placed and we will see how he responds to percutaneous drainage. Dialysis may be necessary if his renal function continues to deteriorate. Patrice Sanchez MD MTDD
[2017-06-16] MEDS: Nitroglycerin 2% Ointment Foilpak UD TOP PRN (06:22)
[2017-06-16 07:11] LABS: HEMOGLOBIN 11.1 g/dL (14.0-18.0); MEAN CELL VOLUME 88.2 fl (80.0-105.0); MEAN CORPUSCULAR HEMOGLOBIN 28.5 pg (25.0-35.0); MEAN CORPUSCULAR HGB CONC 32.3 g/dl (31.0-37.0); MEAN PLATELET VOLUME 12.3 fl (7.0-11.0); RBC 3.9 10^6/uL (3.5-6.1); WHITE BLOOD COUNT 6.6 10^3/ul (4.5-11.0)
[2017-06-16 07:51] VITALS: TEMP 98.2
[2017-06-16 07:51] LABS: CALCIUM 8.2 mg/dL (8.4-10.5)
[2017-06-16] MEDS ORDERED: POLYETHYLENE GLYCOL 3350 17 GM/Dose PACKET PO SCH (10:00)
[2017-06-16] MEDS: diltiaZEM 240 mg/24 Hours CD Cap PO SCH (10:08)
[2017-06-16] MEDS: POLYETHYLENE GLYCOL 3350 17 GM/Dose PACKET PO SCH ×2 (10:08→17:48)
[2017-06-16 17:51] VITALS: BP 149/77; PULSE 69
--- NOTE | 2017-06-16 18:50 | PN ---
DATE: 06/16/2017 SUBJECTIVE: This 82-year-old male was examined at the bedside in the presence of his daughter, Saira and this case was reviewed in detail with his nurse, Yumiko Álvarez, and Dr. Patrice Sanchez from Interventional Radiology. The patient had a successful right percutaneous nephrostomy completed last evening. At present, he is afebrile and is diuresing via the percutaneous nephrostomy. Of note, he has had 3.9 liters of urine output and is sitting and eating lunch and denying any shortness of breath, chest pain, or lightheadedness. There have been no reports of fever or chills. PHYSICAL EXAMINATION: VITAL SIGNS: His temperature is 98.2, respirations 20, pulse 77, and blood pressure 133/82 with a pulse ox of 94% on room air. HEENT: Head is normocephalic, atraumatic. Eyes: No icterus. Ears: Clear. Throat: Noninjected. NECK: Supple. HEART: Regular S1, S2. LUNGS: Clear. ABDOMEN: Soft. EXTREMITIES: No edema. SKIN: Without rash. NEUROLOGIC: Intact. PSYCHOLOGIC: Alert. VASCULAR: Legs warm to touch. LABORATORY DATA: Urine in his Sims bag is showing a light pink tinged hue. White count 6600, hemoglobin 11.1, hematocrit 34.4, platelets 80,000. PT/INR 1.09, PTT 28.3. Sodium 145, K 3.9, chloride 109, bicarb 25, BUN 54, creatinine 4.9. Previously, BUN 76 and creatinine 10.0. Random blood sugar 108. IMPRESSION: An 82-year-old male status post right percutaneous nephrostomy in the setting of solitary right kidney, status post left nephrectomy in the past for renal cell carcinoma, now with obstructive uropathy and acute renal failure after a cystoscopy for recurrent bladder cancer fulguration by Dr. Ascencion Lara from Urology, with comorbidities of gross hematuria, clots, chronic hypertension, stable atherosclerotic heart disease, history of prostate cancer, bladder cancer, left renal cancer, recent hyperkalemia, hyperlipidemia, degenerative arthritis, and deconditioning. PLAN: As discussed with Dr. Patrice Sanchez from Interventional Radiology, nursing, patient, and family, will be to have further discussion with Dr. Ascencion Lara from Urology regarding the best forward plan for this patient being continued percutaneous nephrostomy or plan to internalize a ureteral stent by interventional radiologist, Dr. Patrice Sanchez. He will be reaching out to Dr. Ascencion Lara and they will discuss and come to a conclusion in the near future. At present, the patient is ordered to have bladder scanning q. shift. He will have I's and O's monitored from his percutaneous nephrostomy. He is ordered to have a heart-healthy soft bland diet and we will continue on 0.9 saline at 75 mL/hour, MiraLax 17 g p.o. b.i.d., Lopressor 50 mg p.o. b.i.d., Lipitor 10 mg at dinner time, Flomax 0.4 mg p.o. daily, and Cardizem CD 240 mg p.o. daily with an order for 1 inch of nitro paste to chest wall q. 4 hours p.r.n. accelerated hypertension if systolic blood pressure should be greater than 160 or diastolic blood pressure should be greater than 100. The patient will be ordered to have a basic metabolic panel and CBC in the a.m. Geater than 35 minutes was spent in the care, management, review of x-rays, labs, medication orders, and discussion of this patient's care with nursing, family, Urology, and Interventional Radiology today. All questions were answered. Diann Reyna MD MTD[facility]
--- NOTE | 2017-06-17 08:32 | PN ---
DATE: 06/16/2017 SUBJECTIVE: Patient is seen in his room. He is awake and alert, resting comfortably. He is afebrile. OBJECTIVE: Temperature of 98.2, pulse of 91, BP 133/82, respirations 20. ABDOMEN: Benign. GENITOURINARY: Sims catheter in place, draining clear urine on slow CBI. Nephrostomy tube in place, draining lightly blood-tinged urine. LABORATORY DATA: Creatinine has come down to 4.9, potassium now at 3.9. Results of nephrostogram reviewed. IMPRESSION AND PLAN: An 82-year-old male with solitary kidney and extensive bladder cancer. Patient went into renal failure from unknown cause, but appears to be obstruction. He had a nephrostomy placed yesterday on my recommendation as I did not feel I would be able to place a stent given the extensive scarring and the tumor in his bladder. On the nephrostogram, contrast was noted to run into the bladder and drained out, so it is unclear about obstruction. However, given his improving renal function, it does not appear to be obstructed. Plan for now will be to discontinue the continuous bladder irrigation. Patient will likely be transferred to transitional care unit for rehabilitation. We will remove the Sims catheter in a few days if drainage remains clear. Patient can then be discharged home when medically stable with the nephrostomy tube and I will schedule him for a repeat cystoscopy regarding the bladder cancer. Once the bladder issues have been controlled, we can consider clamping the nephrostomy tube and if his renal function remains stable, we can consider pulling the nephrostomy tube. Ascencion Lara MD
--- NOTE | 2017-06-17 16:23 | DS ---
DATE; 06/16/2017 The patient is being discharged from room 561, bed #2. FINAL DIAGNOSES: Gross hematuria, acute renal failure, right hydronephrosis, status post left nephrectomy, history of prostate cancer, bladder cancer, history of left renal cell carcinoma and nephrectomy, chronic hypertension, stable atherosclerotic heart disease, and hyperlipidemia. DISPOSITION: Transitional care rehab. DISCHARGE MEDICINES: Cardizem 240 mg p.o. daily, Flomax 0.4 mg p.o. daily, Lipitor 20 mg p.o. daily, Lopressor 50 mg p.o. b.i.d., nitro paste 1 inch to chest wall q. 4 hours p.r.n. accelerated hypertension if systolic blood pressure greater than 160 or diastolic blood pressure greater than 100, Tylenol 650 p.o. q. 6 hours p.r.n. pain or fever, Zofran 4 mg IV q. 8 hours p.r.n. nausea, vomiting. CONSULTANTS: Dr. Ascencion Lara, Urology; Dr. Patrice Sanchez, Interventional Radiology. PROCEDURE: Right percutaneous nephrostomy. SUMMARY: This 82-year-old male was admitted to [facility] after presenting to [facility] ER with gross hematuria and blood clots in his urine and inability to void prompting the placement of a Sims catheter and CBI. The patient was seen in urological consultation by Dr. Lara. He had a renal ultrasound that showed minimal right hydronephrosis as well as minimal right hydronephrosis on a followup abdominal CT. However, the patient was noted to have worsening azotemia and no urine output and underwent a percutaneous nephrostomy tube placement under the direction of Dr. Patrice Sanchez from Interventional Radiology. At the time of his transfer to transitional care rehab, white count 6600, hemoglobin 11.1, hematocrit 34.4, platelets 74,000. PT/INR 1.09, PTT 28.3. Sodium 145, K 3.9, chloride 109, bicarb 25. BUN 54, creatinine 4.9. Random blood sugar 108. Previous basic metabolic panel of the day prior on 06/15/2017, showed sodium 139, K 5.5, chloride 103, bicarb 22. BUN 76 and creatinine 10.0. The patient will require IV fluids, close monitoring of his basic metabolic panel. 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 Corky Marcum from Hematology/Oncology in the past. At the time of his transfer, his vital signs were temperature 98.2, respirations 20, pulse 69, and blood pressure 133/82 with a pulse ox of 94% on room air. Of note, the patient's urine output has picked up since the placement of a percutaneous nephrostomy and he has had approximately 4 L of urinary output in the past 24 hours. The patient will require close monitoring of I's and O's and daily basic metabolic panels while receiving physical therapy for reconditioning and gait training. Greater than 35 minutes was spent in the care management, review of x-rays, labs, medication, and discussion of this patient's situation with himself, family, Nursing, Dr. Patrice Sanchez, and Dr. Ascencion Lara. All questions were answered. Diann Reyna MD MTDD
== END 2017-06-16 18:30 | DRG 687 ==
LOC: ED 13:24 → ERH 15:59 → 5RNO 20:20 → OBSVTOIN 06-13 10:33
PROVIDERS: ADMIT Internal Medicine; ATTEND Internal Medicine
PROC: 0T9030Z Drainage of Right Kidney with Drainage Device, Percutaneous Approach (ICD-10-PCS; principal; 2017-06-15)
PROC: BT1DYZZ Fluoroscopy of Right Kidney, Ureter and Bladder using Other Contrast (ICD-10-PCS; 2017-06-15)
DX: C67.9 Malignant neoplasm of bladder, unspecified (principal); N17.9 Acute kidney failure, unspecified; R31.0 Gross hematuria; N13.30 Unspecified hydronephrosis; D69.59 Other secondary thrombocytopenia; E87.5 Hyperkalemia; E78.5 Hyperlipidemia, unspecified; I25.10 Atherosclerotic heart disease of native coronary artery without angina pectoris; I12.9 Hypertensive chronic kidney disease with stage 1 through stage 4 chronic kidney disease, or unspecified chronic kidney disease; N18.9 Chronic kidney disease, unspecified; J32.9 Chronic sinusitis, unspecified; Z90.5 Acquired absence of kidney; Z85.46 Personal history of malignant neoplasm of prostate; Z85.528 Personal history of other malignant neoplasm of kidney; Z95.5 Presence of coronary angioplasty implant and graft; Z87.891 Personal history of nicotine dependence

== ENCOUNTER 2017-06-16 18:30 | Inpatient (IN) | payer OTHER, BC ==
[2017-06-16] MEDS: Sodium Chloride 0.9% 1,000 ML IV SCH (20:15)
[2017-06-16 22:29] VITALS: BMI 26.3
[2017-06-16] MEDS ORDERED: Pneumococcal 23-Valent Vaccine IM ONE (22:29)
[2017-06-16] MEDS ORDERED: Influenza Vaccine 60 mcg/0.5 mL SYR (4YR UP) IM ONE (22:29)
[2017-06-17] MEDS: Nitroglycerin 2% Ointment Foilpak UD TOP PRN (05:00)
[2017-06-17 06:57] LABS: HEMOGLOBIN 10.2 g/dL (14.0-18.0)
[2017-06-17 07:13] LABS: CALCIUM 8.1 mg/dL (8.4-10.5)
[2017-06-17] MEDS: diltiaZEM 240 mg/24 Hours CD Cap PO SCH (10:57)
[2017-06-17] MEDS: POLYETHYLENE GLYCOL 3350 17 GM/Dose PACKET PO SCH ×2 (10:58→18:28)
--- NOTE | 2017-06-17 14:08 | PN ---
DATE: 06/17/2017 SUBJECTIVE: This 82-year-old male was examined at his bedside and this case was reviewed in detail with himself and his daughter, Dora at the bedside. The patient remains hospitalized in the setting of acute renal failure secondary to obstructive uropathy which required a percutaneous right nephrostomy tube placement by Dr. Patrice Sanchez from Interventional Radiology. The patient has a significant past medical history of left nephrectomy for kidney cancer, also with bladder cancer recurrent and history of prostate cancer as well. He was admitted with gross hematuria and blood clots, felt to be the sequela of recent bladder cystoscopy and fulguration for recurrent bladder cancer. Despite CBI and Sims catheter, the patient experienced acute renal failure requiring a percutaneous nephrostomy because of advanced azotemia, hyperkalemia and no urine output. At present, the patient has clear yellow urine draining from his nephrostomy tubing and denies any fever or chills. PHYSICAL EXAMINATION: VITAL SIGNS: His temperature is 98.7, respirations 16, pulse 75, and blood pressure 154/69 with a pulse ox of 100% on room air. HEENT: Head is normocephalic and atraumatic. Eyes: No icterus. Ears: Clear. Throat: Noninjected. NECK: Supple. HEART: Regular, S1, S2. LUNGS: Clear. ABDOMEN: Soft. EXTREMITIES: No clubbing, no cyanosis, no edema. SKIN: Without rash. NEUROLOGICAL: Intact. PSYCHOLOGICAL: Alert and anxious. VASCULAR: Legs warm to touch. LABORATORY DATA: Hemoglobin 10.2, hematocrit 32.0. Sodium 147, K 3.8, chloride 112, bicarb 27. BUN 35, creatinine 1.9. Random blood sugar is 95. Calcium 8.1. IMPRESSION: An 82-year-old male with acute renal failure secondary to obstructive uropathy and a solitary right kidney with a history of left nephrectomy for renal cancer, recurrent bladder cancer, prostate cancer, admitted with hematuria and blood clots, and experiencing acute renal failure secondary to the above. Also with comorbidities of chronic hypertension, hyperlipidemia, hyperkalemia, improved. PLAN: At present as discussed with the patient, Nursing, and family will be to maintain IV fluids at 75 mL/hour, monitoring I's and O's, and daily basic metabolic panel. He continues on physical and occupational therapy, fall protocol, and is continuing on a heart-healthy renal diet. He continues on 0.9 saline at 75 mL/hour, nitroglycerin 1 inch to chest wall q. 4 hours p.r.n. accelerated hypertension if systolic blood pressure greater than 160 or diastolic blood pressure greater than 100. Also, MiraLax 17 g p.o. b.i.d., Lopressor 50 mg p.o. b.i.d., Lipitor 10 mg p.o. at dinner time, Flomax 0.4 mg daily, and Cardizem 240 mg p.o. daily. He is ordered to have a basic metabolic panel in the a.m. The family and patient have requested consideration for ureteral stent placement if possible to avoid chronic nephrostomy management and drainage and this will be discussed with Dr. Ascencion Lara and Dr. Patrice Sanchez, once renal function is stabilized. Greater than 35 minutes was spent in the care management, review of x-rays, labs, medication, orders, and outlining of care and discussion with the patient and family at bedside today. All questions were answered. Diann Reyna MD MTDD
[2017-06-17] MEDS: Sodium Chloride 0.9% 1,000 ML IV SCH ×2 (14:20→22:29)
[2017-06-18 07:20] LABS: CALCIUM 8.3 mg/dL (8.4-10.5)
[2017-06-18] MEDS: diltiaZEM 240 mg/24 Hours CD Cap PO SCH (11:22)
[2017-06-18] MEDS: POLYETHYLENE GLYCOL 3350 17 GM/Dose PACKET PO SCH ×2 (11:23→17:37)
[2017-06-18] MEDS: Sodium Chloride 0.9% 1,000 ML IV SCH (14:43)
--- NOTE | 2017-06-18 22:42 | PN ---
DATE: 06/18/2017 SUBJECTIVE: This 82-year-old male was examined at his bedside. He is having urine output via both his Sims catheter and percutaneous nephrostomy. I did have a lengthy discussion with Dr. Patrice Sanchez from Interventional Radiology. He is willing to coordinate an attempt at a percutaneous right ureteral catheter placement for this patient with the assistance of Dr. Ascencion Lara in the next week or so. However, he feels it is prudent to let the patient be managed by a nephrostomy at present until stabilized. The patient at present denies any fever or chills. He is deconditioned and cooperating with physical therapy. His appetite is slowly improving and his acute on chronic renal failure is improving on daily monitoring of electrolytes with IV fluids and improved diet. PHYSICAL EXAMINATION: VITAL SIGNS: Temperature was 97.6, respirations 28, pulse 73 and blood pressure 117/78 with a pulse ox of 95% on room air. HEAD: Normocephalic, atraumatic. Eyes: No icterus. Ears: Clear. Throat: Noninjected. NECK: Supple. HEART: Regular S1, S2. LUNGS: Clear. ABDOMEN: Soft. EXTREMITIES: No edema. SKIN: Without rash. NEUROLOGIC: Intact. PSYCHOLOGIC: Alert and anxious. VASCULAR: Legs are warm to touch. His Sims catheter had slightly pink tinged urine. Hemoglobin 10.2, hematocrit 32.0. Sodium 143, K 3.8, chloride 111, bicarb 27, BUN 26, creatinine 1.5, random blood sugar 96. 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 PLAN: The plan is discussed with the patient, nursing, family and Dr. Patrice Sanchez and Dr. Ascencion Lara, will be to continue IV fluids while monitoring blood work and urine output. He will continue on physical and occupational therapy. He remains on fall precautions. He is ordered to have a heart-healthy renal diet and continues on 0.9 saline at 75 mL/hour, Cardizem CD 240 mg p.o. daily, Flomax 0.4 mg p.o. daily, Lipitor 10 mg p.o. daily, Lopressor 50 mg p.o. b.i.d., MiraLax 17 g p.o. b.i.d., nitroglycerin 1 inch to chest wall q.4h. p.r.n. accelerated hypertension if systolic blood pressure is greater than 160 or diastolic blood pressure is greater than 100. He will be ordered to have a basic metabolic panel and CBC in the a.m. I will discuss with Dr. Ascencion Lara the timing of the removal of his Sims catheter and setting up outpatient scheduling for possible ureteral stent placement in the near future. All of the above was discussed in detail with the patient who is in agreement. Greater than 35 minutes was spent in the care management, review of x-rays and discussion of this patient with co-consultants and nursing. All questions were answered. Diann Reyna MD [facility]
[2017-06-19] MEDS: Sodium Chloride 0.9% 1,000 ML IV SCH ×2 (02:20→18:27)
[2017-06-19 07:08] LABS: HEMOGLOBIN 10.4 g/dL (14.0-18.0); MEAN CELL VOLUME 88.6 fl (80.0-105.0); MEAN CORPUSCULAR HEMOGLOBIN 28.3 pg (25.0-35.0); MEAN CORPUSCULAR HGB CONC 31.9 g/dl (31.0-37.0); MEAN PLATELET VOLUME 11.6 fl (7.0-11.0); RBC 3.68 10^6/uL (3.5-6.1); RED CELL DISTRIBUTION WIDTH 13.5 % (11.5-14.5); WHITE BLOOD COUNT 4.4 10^3/ul (4.5-11.0)
[2017-06-19 07:09] LABS: BLOOD UREA NITROGEN 18 mg/dL (7-21); CALCIUM 8.3 mg/dL (8.4-10.5); GFR AFRICAN-AMERICAN > 60; GFR NON-AFRICAN AMERICAN 58
[2017-06-19] MEDS: diltiaZEM 240 mg/24 Hours CD Cap PO SCH (10:54)
[2017-06-19] MEDS: POLYETHYLENE GLYCOL 3350 17 GM/Dose PACKET PO SCH ×2 (10:55→18:25)
--- NOTE | 2017-06-19 15:48 | PN ---
DATE: 06/19/2017 SUBJECTIVE: This is an 82-year-old male who was examined at bedside and this case was reviewed in detail with himself, his daughter, Dora at the bedside and his nurse who was present for the interview. Earlier today, I have had a lengthy discussion with Dr. Ascencion Lara from Urology regarding this patient's clinical progress. He still has slightly blood tinged urine from the Sims catheter and is draining clear yellow urine from a right-sided percutaneous nephrostomy tube. The patient remains weak and deconditioned. He has a slowly improving p.o. appetite and is showing signs of improvement in renal function both by urine output and laboratory testing. Of note, there have been no fever or chills, chest pain or shortness of breath and he is starting to move his bowels better with the addition of MiraLax. PHYSICAL EXAMINATION: VITAL SIGNS: Temperature is 98.8, respirations 16, pulse 66, blood pressure 145/77 with a pulse ox of 96% on room air. Urinary output is 1100 thus far today. HEENT: Head: Normocephalic, atraumatic. Eyes: No icterus. Ears: Clear. Throat: Noninjected. Neck: Supple. HEART: Regular S1, S2. LUNGS: Clear. ABDOMEN: Soft. EXTREMITIES: No edema. SKIN: Without rash. NEUROLOGICAL: Intact. PSYCHOLOGICAL: Chronic anxiety. VASCULAR: Legs warm to touch. LABORATORY DATA: White count 4400, hemoglobin 10.4, hematocrit 32.6, platelets 135,000. Sodium 142, K 4.0, chloride 111, bicarb 24, BUN 18, creatinine 1.2, random blood sugar was 97. IMPRESSION: An 82-year-old male admitted with gross hematuria, bladder clots, [id number] renal insufficiency with history of left nephrectomy for renal cancer, recurrent bladder cancer and history of prostate cancer, complicated by need for right percutaneous nephrostomy in the setting of advanced renal insufficiency secondary to obstructive uropathy with comorbidities of stable atherosclerotic heart disease, chronic hypertension, hyperlipidemia and anxiety neurosis. PLAN: The plan as discussed with the patient, daughter at bedside, Dr. Ascencion Lara from Urology and nursing will be to remove Sims catheter later today and observe on a q. shift basis. The patient's urinary output and bladder scanning to ensure that the patient has no urinary retention. He will continue on IV fluids. Serial basic metabolic panels and physical and occupational therapy. The patient most likely will be discharged to home when medically improved with his percutaneous nephrostomy drainage bag and then to have followup with Urology as an outpatient within the next 1-2 weeks for scheduling of repeat cystoscopy and hopeful right ureteral stent placement. The patient will continue on Cardizem 240 mg p.o. daily, Flomax 0.4 mg p.o. daily, Lipitor 10 mg p.o. at dinnertime, Lopressor 50 mg p.o. b.i.d., MiraLax 17 g p.o. b.i.d., nitroglycerin ointment to chest wall 1 inch q. 4 hours p.r.n. accelerated hypertension if systolic blood pressure greater than 164, diastolic blood pressure greater than 100, 0.9 saline at 75 mL/hour. He is also ordered to have Zofran 4 mg IV q. 6 hours p.r.n. nausea and vomiting and Tylenol 650 mg p.o. q. 6 hours p.r.n. pain or temperature greater than 101. Greater than 35 minutes was spent in the care and management, review of labs, medication orders and discussion of this patient with family, himself, Urology and daughter at bedside. All questions were answered. Diann Reyna MD [facility]
[2017-06-20] MEDS: Sodium Chloride 0.9% 1,000 ML IV SCH ×3 (04:34→14:21)
[2017-06-20] MEDS: Nitroglycerin 2% Ointment Foilpak UD TOP PRN (07:00)
[2017-06-20] MEDS: diltiaZEM 240 mg/24 Hours CD Cap PO SCH (11:16)
[2017-06-20] MEDS: POLYETHYLENE GLYCOL 3350 17 GM/Dose PACKET PO SCH ×2 (11:17→18:57)
--- NOTE | 2017-06-20 14:35 | PN ---
DATE: 06/20/2017 SUBJECTIVE: This 82-year-old male was examined at bedside in the presence of his daughter, Dora and this case was reviewed in detail with his nurse, Alexsandra Herman, registered nurse. The patient has had his Sims catheter discontinued. He is voiding without any complaints of blood-tinged urine at present. Of note, his nephrostomy tube continues to drain clear yellow urine and the patient remains weak and deconditioned. Appetite is slowly improving and he did have a bowel movement yesterday with the addition of MiraLax to his medication regime. He denies any fever, chills, chest pain or shortness of breath. PHYSICAL EXAMINATION VITAL SIGNS: Temperature 98.8, respirations 16, pulse 65 and blood pressure 149/71 with a pulse ox of 96% on room air. Of note, he has had 800 mL of urine output thus far today. I have discussed with the nurse of his postvoid residual, it was noted to be 70 mL. HEENT: Head: Normocephalic, atraumatic. Eyes: No icterus. Ears: Clear. Throat: Noninjected. NECK: Supple. HEART: Regular S1, S2. LUNGS: Clear. ABDOMEN: Soft. EXTREMITIES: No edema. SKIN: Without rash. NEUROLOGIC: Intact. PSYCHOLOGIC: Alert. VASCULAR: Legs warm to touch. LABORATORY DATA: White count 4400, hemoglobin 10.4, hematocrit 32.6, platelets 135,000. Sodium 142, K 4.0, chloride 111, bicarb 24, BUN 18, creatinine 1.2, random blood sugar 97. IMPRESSION: This is an 82-year-old male status post acute renal failure secondary to obstructive uropathy and a right solitary kidney and now has a percutaneous nephrostomy and the patient was admitted with gross hematuria and blood clots which caused obstructive uropathy and a solitary right kidney, with history of left nephrectomy for renal cell carcinoma, history of prostate cancer, history of bladder cancer and comorbidities of stable atherosclerotic heart disease, hyperlipidemia, chronic hypertension and recent obstipation, resolved with MiraLax; also with anemia of acute illness and history of chronic thrombocytopenia secondary to platelet clumping. PLAN: As discussed with the patient, daughter, nursing and Dr. Lara from Urology will be to continue the patient with physical and occupational therapy for reconditioning and gait training while ordering fall precautions and a heart-healthy soft bland renal diet. He continues on Zofran p.r.n. nausea, Tylenol p.r.n. pain or fever, 0.9 saline at 75 mL/hour, nitroglycerin 1 inch to chest wall q. 4 hours p.r.n. accelerated hypertension if systolic blood pressure greater than 160 or diastolic blood pressure greater than 100. He will continue on MiraLax 17 g p.o. b.i.d., Lopressor 50 mg p.o. b.i.d., Lipitor 10 mg p.o. at dinner time, Flomax 0.4 mg p.o. daily and Cardizem CD 240 mg p.o. daily. He is ordered to have a repeat basic metabolic panel, hemoglobin/hematocrit in the a.m. The nursing staff will be assisting him with a shower while covering his nephrostomy tubes with a water-protected barrier. Ultimate plan when discharge to home will be for follow up with Dr. Lara for discussion of repeat cystoscopy and possible ureteral stent placement to hopefully avoid the need for chronic right percutaneous nephrostomy. Greater than 35 minutes was spent in the care management, review of the x-rays, labs, medication orders and consultation with the patient and daughter at bedside. All questions were answered. Diann Reyna MD [facility] # [id number] [facility]ITAL[facility]
[2017-06-21 06:29] LABS: HEMOGLOBIN 9.8 g/dL (14.0-18.0)
[2017-06-21 06:31] LABS: BLOOD UREA NITROGEN 16 mg/dL (7-21); CALCIUM 8.3 mg/dL (8.4-10.5); GFR AFRICAN-AMERICAN > 60; GFR NON-AFRICAN AMERICAN 58
[2017-06-21] MEDS: Sodium Chloride 0.9% 1,000 ML IV SCH (06:48)
[2017-06-21] MEDS: diltiaZEM 240 mg/24 Hours CD Cap PO SCH (10:55)
[2017-06-21] MEDS: POLYETHYLENE GLYCOL 3350 17 GM/Dose PACKET PO SCH ×2 (11:31→17:55)
--- NOTE | 2017-06-21 22:27 | PN ---
DATE: 06/21/2017 SUBJECTIVE: This 82-year-old male was examined at his bedside in the presence of his daughter, Dora, and his nurse, Alexsandra Sprague, registered nurse. The patient is out of bed to chair. He denies any chest pain or shortness of breath. He is voiding since the removal of his Sims catheter and denied any dysuria. His right percutaneous nephrostomy is draining clear yellow urine and there have been no reports of fever or chills. He states his appetite is slowly improving. He had a bowel movement yesterday and he is starting to ambulate better with physical therapy. PHYSICAL EXAMINATION: VITAL SIGNS: Temperature is 98.4, respirations 18, pulse 62 and blood pressure 158/85 with a pulse ox of 94% room air. HEENT: Head: Normocephalic, atraumatic. Eyes: No icterus. Ears: Clear. Throat: Noninjected. NECK: Supple. HEART: Regular S1, S2. LUNGS: Clear. ABDOMEN: Soft. EXTREMITIES: No edema. SKIN: Without rash. NEUROLOGICAL: Intact. PSYCHOLOGICAL: Chronic anxiety. LABORATORY DATA: Hemoglobin 9.8, hematocrit 30.9. Sodium 140, K 3.8, chloride 109, bicarb 23, BUN 16, creatinine 1.2, random blood sugar was 89. IMPRESSION: An 82-year-old male with [id number] renal failure in the setting of obstructive uropathy and a solitary right kidney status post left nephrectomy for cancer of the kidney in the distant past with comorbidities of bladder and prostate cancer, stable atherosclerotic heart disease status post coronary artery stenting, chronic hypertension, hyperlipidemia, anemia of acute illness and chronic anxiety neurosis. PLAN: As discussed with the patient, daughter, nursing, will be to maintain gentle IV fluids, physical and occupational therapy while maintaining this patient on strict Is and Os and fall precautions. He continues on a heart-healthy soft bland diet. He is ordered to receive Zofran 4 mg IV q. 6 hours p.r.n. nausea, vomiting, Tylenol 650 mg p.o. q. 6 hours p.r.n. pain or temperature greater than 101 and 0.9 saline at 50 mL/hour. He has an order for 1 inch of nitro paste to chest wall q. 4 hours p.r.n. accelerated hypertension if systolic blood pressure should be greater than 160 or diastolic blood pressure should be greater than 100. He will continue on MiraLax 17 g p.o. b.i.d., Lopressor 50 mg p.o. b.i.d., Lipitor 10 mg p.o. at dinner time and Flomax 0.4 mg p.o. daily, Cardizem 240 mg p.o. daily. The patient will continue to have bladder scanning to rule out urinary retention. The plan will be that he will be discharged with his percutaneous nephrostomy and bag for follow up with Dr. Ascencion Lara as an outpatient with hopeful repeat cystoscopy and placement of a right ureteral stent in the near future to obviate need for chronic right percutaneous nephrostomy. Greater than 35 minutes was spent in the care management, review of x-rays, labs, medication orders and discussion of this situation with the patient, daughter and nursing at bedside. All questions were answered. Diann Reyna MD [facility]TD[facility]
[2017-06-22] MEDS: POLYETHYLENE GLYCOL 3350 17 GM/Dose PACKET PO SCH ×2 (09:51→17:50)
[2017-06-22] MEDS: diltiaZEM 240 mg/24 Hours CD Cap PO SCH (09:51)
[2017-06-22] MEDS: Sodium Chloride 0.9% 1,000 ML IV SCH ×2 (15:50→21:36)
--- NOTE | 2017-06-22 16:25 | PN ---
DATE: 06/22/2017 SUBJECTIVE: This 82-year-old male was examined at his bedside in the presence of his daughter, Luz Elena. He is tolerating IV fluids. His right percutaneous nephrostomy is draining clear yellow urine and he is still having bladder output via his penis. He denies any fever or chills. He is tolerating IV fluids. He is having bowel movements with MiraLax and remains deconditioned. PHYSICAL EXAMINATION: VITAL SIGNS: Temperature 98.4, respirations 18, pulse 83, blood pressure 150/72. Pulse ox 94% on room air. HEENT: Head normocephalic, atraumatic. Eyes: No icterus. Ears: Clear. Throat: Noninjected. NECK: Supple. HEART: Regular S1, S2. LUNGS: Clear. ABDOMEN: Soft. EXTREMITIES: No edema. SKIN: Without rash. NEUROLOGICAL: Intact. PSYCHOLOGICAL: Alert. VASCULAR: Legs warm to touch. LABORATORY DATA: Hemoglobin 9.8, hematocrit 30.9. Sodium 140, K 3.8, chloride 109, bicarb 23. BUN 16, creatinine 1.2. Random blood sugar 89. IMPRESSION: An 82-year-old male with [id number] renal insufficiency, status post right obstructive uropathy and a solitary kidney, status post percutaneous nephrostomy for obstructive uropathy, and history of left nephrectomy for renal cancer years ago as well as prostate and bladder cancer, also with comorbidities of hyperlipidemia, stable atherosclerotic heart disease, chronic hypertension, anemia of acute illness, degenerative arthritis, and anxiety neurosis. PLAN: The plan will be to continue gentle IV fluids, monitoring I's and O's, serial basic metabolic panels, and hemoglobin and hematocrit. He is ordered to have physical and occupational therapy for reconditioning, gait training, and continues out of bed to chair on a high fall risk protocol. He is tolerating a heart-healthy renal bland diet. He continues on nitroglycerin 1 inch to chest wall q. 4 hours p.r.n. accelerated hypertension if systolic blood pressure should be greater than 160 or diastolic blood pressure should be greater than 100. He will continue on MiraLax 17 g p.o. b.i.d., Lopressor 50 mg p.o. b.i.d., Lipitor 10 mg p.o. at dinner time, Flomax 0.4 mg p.o. daily, Cardizem 240 mg p.o. daily. Urine output thus far today has been 750 mL. Ultimate plan will be for discharge to home with outpatient monitoring of his renal parameters and follow up with Dr. Lara for consideration of cystoscopy followup and ureteral stent placement to obviate the need for chronic right percutaneous nephrostomy. Greater than 35 minutes was spent in the care management, review of x-rays, and discussion of this patient's care with his daughter, himself, and Nursing today. All questions were answered. Diann Reyna MD MTDD
--- NOTE | 2017-06-23 04:21 | CP.PCM.PN ---
Subjective - Date & Time of Evaluation Date of Evaluation: 06/23/17 Time of Evaluation: 04:20 - Subjective Subjective: Patient was seen at bedside. Nurse calls and tells that patient is not able to void and bladder scan reveals collection of urine is 244 CC. Has lower abdominal discomfort. Requests insertion of Sims catheter. Explained to him risk of introduction of infection. Patient has right sided nephrostomy tube which is draining urine. Has no other complaints. Medical record was reviewed. This 82 year old white male was admitted with gross hematuria with clots. Has PMH of bladder cancer, S/P cystoscopy , urethral dilatatioon of urethral structure, ASHD, coronary stent placement, HLD, HTN, sinusitis, thrombocytopenia, renal cell carcinoma, prostate cancer , bladder cancer, S/P nephrectomy. Objective - Vital Signs/Intake and Output Vital Signs (last 24 hours): Temp Pulse Resp BP Pulse Ox 98 F 81 18 146/78 96 06/22/17 17:49 06/22/17 17:49 06/22/17 17:49 06/22/17 17:49 06/22/17 17:49 Intake and Output: 06/22/17 06/23/17 18:59 06:59 Output Total 320 Balance -320 - Medications Medications: Current Medications Acetaminophen (Tylenol 325mg Tab) 650 mg PO Q6H PRN; Protocol PRN Reason: pain or fever >100.4 Atorvastatin Calcium (Lipitor) 10 mg PO DIN GUILLERMINA PRN Reason: Protocol Last Admin: 06/22/17 17:50 Dose: 10 mg Diltiazem HCl (Cardizem Cd) 240 mg PO DAILY GUILLERMINA PRN Reason: Protocol Last Admin: 06/22/17 09:51 Dose: 240 mg Sodium Chloride (Sodium Chloride 0.9%) 1,000 mls @ 50 mls/hr IV .Q20H GUILLERMINA PRN Reason: Protocol Last Admin: 06/22/17 21:36 Dose: 50 mls/hr Metoprolol Tartrate (Lopressor) 50 mg PO BID GUILLERMINA PRN Reason: Protocol Last Admin: 06/22/17 17:50 Dose: 50 mg Nitroglycerin (Nitro-Bid 2% Oint) 1 ea TOP Q4H PRN; Protocol PRN Reason: systolic >160 & diastolic >100 Last Admin: 06/20/17 07:00 Dose: 1 ea Ondansetron HCl (Zofran Inj) 4 mg IVP Q6H PRN; Protocol PRN Reason: Nausea/Vomiting Polyethylene Glycol (Miralax) 17 gm PO BID GUILLERMINA PRN Reason: Protocol Last Admin: 06/22/17 17:50 Dose: Not Given Tamsulosin HCl (Flomax) 0.4 mg PO 1800 GUILLERMINA PRN Reason: Protocol Last Admin: 06/22/17 17:50 Dose: 0.4 mg - Labs Labs: 06/21/17 06:00 06/21/17 06:00 - Constitutional Appears: Well, No Acute Distress - Head Exam Head Exam: ATRAUMATIC, NORMAL INSPECTION, NORMOCEPHALIC - Eye Exam Eye Exam: Normal appearance - ENT Exam ENT Exam: Normal External Ear Exam - Neck Exam Neck Exam: Normal Inspection - Respiratory Exam Respiratory Exam: NORMAL BREATHING PATTERN - Cardiovascular Exam Cardiovascular Exam: absent: JVD - GI/Abdominal Exam GI & Abdominal Exam: absent: Distended - Rectal Exam Rectal Exam: Deferred - Exam Additional comments: Deferred. - Extremities Exam Extremities Exam: Normal Inspection - Back Exam Back Exam: NORMAL INSPECTION - Neurological Exam Neurological Exam: Alert, Oriented x3 - Psychiatric Exam Psychiatric exam: Normal Affect, Normal Mood - Skin Skin Exam: Normal Color Assessment and Plan - Assessment and Plan (Free Text) Assessment: Urinary retention. Hematuria. Renal cell cancer. Bladder cancer. Prostate cancer. HTN. HLD. Thrombocytopenia. S/P cystoscopy. Plan: Drainage by insertion of Sims catheter.
[2017-06-23] MEDS: Nitroglycerin 2% Ointment Foilpak UD TOP PRN (06:07)
[2017-06-23] MEDS: diltiaZEM 240 mg/24 Hours CD Cap PO SCH (10:39)
[2017-06-23] MEDS: POLYETHYLENE GLYCOL 3350 17 GM/Dose PACKET PO SCH ×2 (10:39→17:32)
--- NOTE | 2017-06-23 14:03 | PN ---
DATE: 06/23/2017 SUBJECTIVE: This 82-year-old male was examined at the bedside in the presence of his daughter, Chasidy Pedroza and this case was reviewed in detail with charge nurse, Magalis Santo, registered nurse. The patient had difficulty with bladder voiding last night. He felt the urge to go, but could not. A bladder ultrasound revealed a urinary retention of greater than 200 mL of urine in his bladder and the house doctor was called and a Sims catheter was placed. The patient has a history of urethral stricture in the past and on further questioning of this patient, he said he is well versed in the management of self-catheterization. At present, he is draining clear yellow urine via right percutaneous nephrostomy placed for obstructive uropathy and acute renal failure and at present, denies any fever or chills. PHYSICAL EXAMINATION: VITAL SIGNS: Temperature 98, respirations 16, pulse 86 and blood pressure 144/76 with a pulse ox 96% room air. HEENT: Head: Normocephalic, atraumatic. Eyes: No icterus. Ears: Clear. Throat: Non-injected. NECK: Supple. HEART: Regular S1, S2. LUNGS: Clear. ABDOMEN: Soft. EXTREMITIES: No edema. SKIN: Without rash. NEUROLOGIC: Intact. PSYCHOLOGIC: Alert. VASCULAR: Legs warm to touch. LABORATORY DATA: Hemoglobin 9.8, hematocrit 30.9. Sodium 140, K 3.8, chloride 109, bicarb 23, BUN 16, creatinine 1.2, random blood sugar is 89. IMPRESSION: An 82-year-old male with siews-[id number]-ovvdius renal insufficiency in the setting of obstructive uropathy and right kidney which is a solitary kidney, renal cancer in the distant past with history of bladder cancer, prostate cancer and old left nephrectomy renal cell cancer, now with a percutaneous nephrostomy for a urinary output in the setting of recent acute renal failure. PLAN: Discussed with patient, daughter at bedside and nursing will be to maintain the Sims catheter in place today while continuing Cardizem CD 240 mg p.o. daily, Flomax 0.4 mg p.o. daily, Lipitor 10 mg p.o. daily, Lopressor 50 mg p.o. b.i.d., MiraLax 17 g p.o. b.i.d. and nitroglycerin 1 inch to chest wall q. 4 hours if systolic blood pressure greater than 160 or diastolic blood pressure greater than 100. IV fluids will be discontinued. He continues on a heart-healthy soft bland diet. He is receiving physical and occupational therapy for reconditioning and gait training and remains on fall precautions. I have instructed the patient in the presence of his daughter that he will need to maintain an adequate p.o. fluid intake when home and will have his Sims catheter discontinued in the a.m. with plans for discharge and for him to perform self-catheterization of his bladder should that be necessary. Greater than 35 minutes was spent in the care management, review of labs, medication orders and hospital course with the patient, daughter and nursing. All questions were answered. Diann Reyna MD MTDD
[2017-06-24] MEDS: diltiaZEM 240 mg/24 Hours CD Cap PO SCH (10:32)
[2017-06-24 10:34] VITALS: PULSE 91; RESP 18; TEMP 97.6; O2SAT 96
[2017-06-24] MEDS: POLYETHYLENE GLYCOL 3350 17 GM/Dose PACKET PO SCH (10:34)
[2017-06-24 10:35] VITALS: BP 169/79
--- NOTE | 2017-06-25 06:23 | DS ---
FINAL DIAGNOSES: Acute renal failure resolved, chronic renal insufficiency, history of left nephrectomy, history of right obstructive nephropathy improved with a percutaneous nephrostomy tube, history of chronic hypertension, stable atherosclerotic heart disease with coronary artery stents, hyperlipidemia, degenerative arthritis, anxiety neurosis, bladder cancer, prostate cancer, acute illness anemia and chronic platelet clumping. DISPOSITION: Home. Follow up in my office in one week. Follow up with Dr. Ascencion Lara, Urology, regarding outpatient cystoscopy and need for possible right ureteral stent placement to obviate the need for right percutaneous nephrostomy. Also, follow up for history of prostate cancer, bladder cancer and left nephrectomy for renal cell carcinoma, also diagnosis of anemia of acute illness. SUMMARY: This 82-year-old male was admitted to [facility] with gross hematuria and blood clots upon passing urine in the setting of recent outpatient cystoscopy and fulguration for recurrent bladder cancer under the direction of Dr. Ascencion Lara. The patient was admitted, noted to have right obstructive nephropathy and a solitary right kidney with history of left nephrectomy for history of renal cancer in his past. The patient required a percutaneous nephrostomy tube placement for decompression of his renal outflow tract, and he also received IV fluids and had a Sims catheter placed because of urinary retention. At the time of discharge, the patient's Sims catheter will be discontinued because the patient is well versed in the use of self-catheterization for urinary retention with history of urethral stricture in his past. He will be discharged on Cardizem CD 240 mg p.o. daily, Flomax 0.4 mg p.o. daily, Lipitor 10 mg p.o. daily, Lopressor 50 mg p.o. b.i.d., Lasix 40 mg p.o. daily, Monopril 20 mg p.o. b.i.d. and has been instructed to re-present to the [facility] ER for any change in signs and symptoms. Hopefully, once the patient is stabilized at home, he can be brought to the hospital for a new cystoscopy and hopeful placement of a right ureteral stent under the direction of Dr. Ascencion Lara with whom I have had a lengthy discussion regarding this gentleman. All of the above was discussed in detail with the patient and his daughter, Dora, and nurse, Magalis Santo, registered nurse at the patient's bedside. Greater than 35 minutes were spent in the care management, review of medications, labs, orders, and discussion of future management of this patient with Dr. Ascencion Lara. All questions were answered. Diann Reyna MD MTDOriana
== END 2017-06-24 13:31 | disposition home health service (06) | DRG 683 ==
LOC: TRCU 18:30
PROVIDERS: ADMIT Internal Medicine; ATTEND Internal Medicine
PROC: F07Z9FZ Gait Training/Functional Ambulation Treatment using Assistive, Adaptive, Supportive or Protective Equipment (ICD-10-PCS; principal; 2017-06-17)
PROC: F07M6ZZ Therapeutic Exercise Treatment of Musculoskeletal System - Whole Body (ICD-10-PCS; 2017-06-17)
PROC: F08Z2ZZ Grooming/Personal Hygiene Treatment (ICD-10-PCS; 2017-06-17)
PROC: F08Z1ZZ Dressing Techniques Treatment (ICD-10-PCS; 2017-06-17)
PROC: F08Z0ZZ Bathing/Showering Techniques Treatment (ICD-10-PCS; 2017-06-17)
PROC: F08Z4ZZ Home Management Treatment (ICD-10-PCS; 2017-06-17)
DX: N17.9 Acute kidney failure, unspecified (principal); N13.8 Other obstructive and reflux uropathy; D69.6 Thrombocytopenia, unspecified; E87.5 Hyperkalemia; R31.0 Gross hematuria; I12.9 Hypertensive chronic kidney disease with stage 1 through stage 4 chronic kidney disease, or unspecified chronic kidney disease; F41.1 Generalized anxiety disorder; I25.10 Atherosclerotic heart disease of native coronary artery without angina pectoris; E78.5 Hyperlipidemia, unspecified; N18.9 Chronic kidney disease, unspecified; N32.89 Other specified disorders of bladder; Z79.899 Other long term (current) drug therapy; Z85.46 Personal history of malignant neoplasm of prostate; Z85.51 Personal history of malignant neoplasm of bladder; Z85.528 Personal history of other malignant neoplasm of kidney; Z90.5 Acquired absence of kidney; Z95.5 Presence of coronary angioplasty implant and graft

== ENCOUNTER 2017-08-10 07:08 | Day surgery (SDC) | payer MEDICARE, BC ==
[2017-08-10] MEDS ORDERED: Iohexol 240 (50 ml) ONE (07:49)
[2017-08-10] MEDS ORDERED: cefTRIAXone (Rocephin) 1 gm Inj ONE (07:49)
[2017-08-10] MEDS ORDERED: Lidocaine 2% Jelly (Uro-Jet) ONE (07:49)
[2017-08-10 08:36] VITALS: BMI 26.3
[2017-08-10] MEDS ORDERED: Propofol 10 mg/ml Inj (20 ML) ONE (09:16)
[2017-08-10] MEDS ORDERED: Gentamicin 80 mg/2mL Inj. ONE (09:16)
[2017-08-10] MEDS ORDERED: Midazolam 2 MG/2 ML VIAL ONE (09:17)
[2017-08-10] MEDS ORDERED: ePHEDrine 50 mg/ml Inj ONE (10:00)
[2017-08-10] MEDS ORDERED: Morphine 2 mg/ml ISec IVP PRN (10:43)
[2017-08-10] MEDS ORDERED: Lactated Ringer's 1,000 ML IV SCH (10:45)
[2017-08-10] MEDS ORDERED: Morphine 4 mg/ml ISec IVP PRN (11:08)
[2017-08-10] MEDS ORDERED: Morphine 5 MG/ML SYRINGE IV PRN (11:14)
[2017-08-10] MEDS ORDERED: Nitroglycerin 2% Ointment Foilpak UD TOP PRN (11:16)
[2017-08-10] MEDS ORDERED: Dextrose 5%/0.45% NS 1,000 ML IV SCH (13:00)
[2017-08-10] MEDS: diltiaZEM 240 mg/24 Hours CD Cap PO SCH (13:01)
--- NOTE | 2017-08-10 14:43 | RAD ---
PROCEDURE: Fluoroscopy up to 1 hr. HISTORY: Placement RT nephroureteral stent COMPARISON: None TECHNIQUE: Total fluoroscopic time (continuous mode) utilized during the procedure 47.0 seconds. Total exam DLP: (mGy) 11.31 FINDINGS: Submitted images from the current procedure: Greater than 10. IMPRESSION: Less than 1 hr fluoroscopic time utilized during performance of the procedure.
[2017-08-10 16:26] VITALS: RESP 18
[2017-08-11 07:59] LABS: HEMOGLOBIN 12.7 g/dL (14.0-18.0)
[2017-08-11 08:12] LABS: BLOOD UREA NITROGEN 26 mg/dL (7-21); CALCIUM 8.7 mg/dL (8.4-10.5); GFR AFRICAN-AMERICAN > 60; GFR NON-AFRICAN AMERICAN 53
--- NOTE | 2017-08-11 08:16 | OP ---
PROCEDURE DATE: 08/10/2017 PREOPERATIVE DIAGNOSES: Bladder cancer, right hydronephrosis, right ureteral obstruction, urethral stricture. POSTOPERATIVE DIAGNOSES: Bladder cancer, right hydronephrosis, right ureteral obstruction, urethral stricture. PROCEDURE: Cystoscopy, urethral dilation, excision and fulguration of multiple bladder tumors, excision of ureteral tumor, right retrograde pyelogram, insertion of a right ureteral stent. ATTENDING SURGEON: Ascencion Lara MD ANESTHESIA: General. SPECIMENS: Multiple bladder tumor pieces were sent. Ureteral biopsy was sent to Pathology. DRAINS: A 6 x 24 right ureteral stent and a 22-Swedish 3-way Sims catheter. OPERATIVE FINDINGS: After informed consent was obtained, the patient was taken to operating room, placed in the operating table. Anesthesia was administered. The patient was placed in the dorsal lithotomy position and prepped and draped in usual sterile fashion. First, a 22-Swedish cystoscope was placed in the patient's urethra and advanced proximally. In the bulbar urethra, there was an extremely dense ureteral strictures noted. At this point, the scope was removed. A 17-Swedish scope was obtained. It was passed into the urethra up to the strictured area. A guidewire was then passed through the scope. It was able to be passed through the stricture and guided up into the bladder. With the wire in place, 17 scope was able to be passed through the strictured area into the bladder, which was then drained. On cystoscopy, there appeared to be multiple areas of bladder tumor. There was noted on the posterior wall, the floor near the bladder neck, there was some tumor noted just adjacent to and possibly just inside the right ureteral orifice. At this point, the 17 scope was withdrawn. The wire was left in place. A 22-Swedish cystoscope was then able to be passed. Again, the strictured area was dilated with the scope, which was able to then be advanced into the bladder. After advancing the 22-Swedish scope, there was also noted to be a seed from patient's prior prostate brachytherapy, which was extruded into the bladder. At this point, the wire was then removed using a cold cup biopsy forceps. The tumor on the posterior wall was removed and sent to Pathology as specimen. A Bugbee electrode was then passed and the tumor base and surrounding area were fulgurated. At this point, the tumor adjacent to the right ureteral orifice was excised. Biopsies were also taken just inside the orifice under direct vision. The guidewire was then repassed. It was placed into the orifice and advanced up the ureter under fluoroscopic guidance. The Bugbee electrode was then passed. The biopsy site around the orifice was then cauterized. The Bugbee was then used to cauterize inside the orifice any remaining area of tumor, which was visible. The entire area surrounding the orifice was then fulgurated leaving the wire in place. At this point, an open-ended ureteral catheter was then advanced over the wire into the ureter. Wire was then removed and contrast was placed into the system. There did not appear to be any obvious remaining filling defects further inside the ureter. There is a nephrostomy tube noted in place and the contrast was noted to be exiting from the kidney through the nephrostomy tube. At this point, a 6 x 24 stent was obtained. It was passed through the cystoscope over the wire and advanced up the wire under direct and fluoroscopic guidance. When the stent was in proper position, the guidewire was removed. A coil was seen in the renal pelvis on fluoroscopy. A coil was seen in the bladder on cystoscopy. At this point, the 22-Swedish scope was withdrawn. A 26-Swedish ureteroscope with a visualizing obturator was obtained. The 26-Swedish scope was able to be passed into the ureter. The strictured area, which was now open was again dilated using the scope, which was able to be passed through this area into the bladder. A rollerball electrode was then obtained. Using the rollerball electrode, there were multiple erythematous areas of the patient's prior TURBTs. There was suspicious appearing papillary growth on the floor near the bladder neck, which was completely fulgurated using the rollerball electrode. After all areas of the visible tumor had been treated, a final inspection was made. A coil of the stent was noted. There was no obvious tumor around the ureter. There were no areas of untreated tumor remaining in the bladder. At this point, the bladder was then drained. The scope was then removed and a 22-Swedish 3-way Sims catheter was passed and placed to continuous bladder irrigation. Patient tolerated the procedure well. He was returned to the supine position. He did receive intravenous antibiotics prior to start of the procedure and he was taken to the recovery room awake and in stable condition. Ascencion Lara MD
[2017-08-11 08:22] VITALS: TEMP 97.5; O2SAT 97
[2017-08-11] MEDS ORDERED: cefTRIAXone 1 gm 1 GM/100 ML BAG IVPB ONE (11:03)
[2017-08-11] MEDS: diltiaZEM 240 mg/24 Hours CD Cap PO SCH (11:15)
[2017-08-11 12:53] VITALS: BP 150/80; PULSE 70
--- NOTE | 2017-08-11 22:51 | DS ---
DATE OF EVALUATION: 08/11/2017 FINAL DIAGNOSES: Recurrent bladder cancer, placement of right ureteral stent, history of chronic renal failure stage III, history of right percutaneous nephrostomy tube, history of left nephrectomy, renal cell carcinoma, prostate cancer, chronic hypertension, stable atherosclerotic heart disease, hyperlipidemia, allergic rhinitis. DISPOSITION: Home. Follow up in my office 08/17/2017. Follow up with Dr. Ascencion Lara, Urology. DISCHARGE MEDICATIONS: Cardizem 240 mg p.o. daily, Flomax 0.4 mg p.o. daily, Zocor 20 mg p.o. daily, Lopressor 50 mg p.o. b.i.d., Lasix 40 mg p.o. daily, lisinopril 20 mg b.i.d., and Flonase 0.5 mg spray nostrils daily p.r.n. SUMMARY: This is an 82-year-old male who underwent a cystoscopy with placement of a right ureteral stent, fulguration of recurrent bladder cancer, and chronic bladder irrigation, was cleared for discharge today. His vital signs at the time of discharge were temperature 97.5, respirations 18, pulse 73, and blood pressure 160/87 with a pulse ox of 97% on room air. Today's labs show hemoglobin 12.7, hematocrit 39.3. Sodium 138, K 4.9, chloride 104, bicarb 25, BUN 26, creatinine 1.3, random blood sugar is 145. The patient is discharged to home to the care of his family who provide 24 hours supervision of this patient. He is aware he will need an outpatient followup with Dr. Lara regarding instructions regarding right nephrostomy and possible removal in the future. Nursing staff will be contacting Dr. Lara regarding instructions on Sims catheter that was placed and whether this should be maintained or removed prior to discharge. The patient was aware for any change in signs and symptoms to present directly to the [facility] ER. Overall, prognosis remains stable at present. Hopefully, these maneuvers can avoid the need for dialysis. Diann Reyna MD
== END 2017-08-11 13:46 | disposition home or self-care (01) ==
LOC: SDS 07:08 → 5RSO 11:47 → SDS 08-11 13:46
PROVIDERS: ATTEND Urology
DX: C67.9 Malignant neoplasm of bladder, unspecified (principal); N35.9 Urethral stricture, unspecified; N13.1 Hydronephrosis with ureteral stricture, not elsewhere classified; Z90.5 Acquired absence of kidney
CPT/HCPCS: 52234; 52332; 74420; 88300; 88305; J0696; J1100; J1580; J2001; J2250; J2270; J2405; J2704; J2765; J3010; J7042; J7120; Q9966

== ENCOUNTER 2017-10-05 06:43 | Day surgery (SDC) | payer MEDICARE, BC ==
[2017-09-28 10:27] VITALS: BMI 25.0
[2017-10-05 07:35] LABS: BASO # 0.03 K/mm3 (0.0-2.0); BASO % 0.5 % (0.0-3.0); EOS # 0.1 (0.0-0.7); EOS % 1.7 % (1.5-5.0); GRAN # 3.73 (1.4-6.5); GRAN % 62.7 % (50.0-68.0); HEMOGLOBIN 13.2 g/dL (14.0-18.0); LYMPH # 1.6 (1.2-3.4); LYMPH % 27.4 % (22.0-35.0); MEAN CELL VOLUME 87.9 fl (80.0-105.0); MEAN CORPUSCULAR HGB CONC 31.8 g/dl (31.0-37.0); MONO # 0.5 (0.1-0.6); MONO % 7.7 % (1.0-6.0); RBC 4.72 10^6/uL (3.5-6.1); RED CELL DISTRIBUTION WIDTH 14.5 % (11.5-14.5)
[2017-10-05 07:49] LABS: CALCIUM 9.2 mg/dL (8.4-10.5)
[2017-10-05 07:55] VITALS: RESP 18
[2017-10-05] MEDS ORDERED: Lidocaine 2% Jelly (Uro-Jet) ONE (09:20)
[2017-10-05] MEDS ORDERED: cefTRIAXone (Rocephin) 1 gm Inj ONE (09:20)
[2017-10-05] MEDS ORDERED: Iohexol 240 (50 ml) ONE (09:20)
[2017-10-05] MEDS ORDERED: Propofol 10 mg/ml Inj (20 ML) ONE (09:21)
[2017-10-05] MEDS ORDERED: cefTRIAXone (Rocephin) 1 gm Inj IVPB ONE (09:30)
[2017-10-05] MEDS ORDERED: Gentamicin 80 mg/2mL Inj. IVPB ONE (09:30)
[2017-10-05] MEDS ORDERED: Gentamicin 80 mg/2mL Inj. ONE (09:38)
[2017-10-05] MEDS ORDERED: Iohexol 240 (50 ml) UR ONE (09:40)
[2017-10-05] MEDS ORDERED: Lidocaine 2% Jelly (Uro-Jet) TOP ONE (10:10)
[2017-10-05] MEDS ORDERED: HYDROmorphone 0.5 mg/0.5 ml ISec IVP PRN (10:28)
[2017-10-05] MEDS ORDERED: Lactated Ringer's 1,000 ML IV SCH (10:30)
[2017-10-05 11:31] VITALS: TEMP 97.2
--- NOTE | 2017-10-05 12:45 | RAD ---
PROCEDURE: Retrograde pyelogram HISTORY: RT retrograde pyelogram, RT nephroureteral stent placement COMPARISON: TECHNIQUE: Fluoroscopy was provided in the operating room. 63 seconds of fluoro time with a cumulative dose of 15.49 mGy. Fourteen images submitted FINDINGS: Study shows placement of a right ureteral stent IMPRESSION: As above
[2017-10-05 13:50] VITALS: BP 148/63; PULSE 62; O2SAT 96
--- NOTE | 2017-10-05 17:03 | OP ---
PROCEDURE DATE: 10/05/2017 PREOPERATIVE DIAGNOSES: Bladder cancer, renal insufficiency, urethral stricture, right hydronephrosis, prostate cancer. POSTOPERATIVE DIAGNOSES: Bladder cancer, renal insufficiency, urethral stricture, right hydronephrosis, prostate cancer. PROCEDURES: A cystoscopy, dilation of urethral stricture, right retrograde pyelogram, insertion of a right ureteral stent, bladder biopsy and fulguration, removal of foreign body of the bladder and a Sims catheter insertion. ATTENDING SURGEON: Ascencion Lara MD. ANESTHESIA: General. SPECIMENS: Bladder tumor biopsies sent to pathology and prostatic radiation seeds from bladder were sent to pathology. DRAINS: A 20-Puerto Rican two-way Sims catheter. COMPLICATIONS: There were none. OPERATIVE FINDINGS: After informed consent was obtained, the patient was taken to the operating room, placed on the operating table. Anesthesia was administered. The patient was placed in dorsal lithotomy position and prepped and draped in usual sterile fashion. The patient received IV antibiotics prior to start of the procedure. A 17-Puerto Rican cystoscope was placed in the patient's urethra and advanced proximally under direct vision. There were multiple strictures in the penile urethra, which were able to be navigated in the prostatic urethra. There was a tight stricture and the scope could not be advanced further. A sensor wire was then obtained. It was passed through the cystoscope and it was able to be manipulated through the strictured area until it coiled in the bladder on fluoroscopy. With the wire in place, the scope was able to be advanced through the stricture in order to dilate it. The entire prostatic urethra was basically strictured. There was whitish ragged tissue throughout the entire prostatic urethra. The bladder was able to be entered and a full survey inspection was then performed. There was noted to be one prostatic radiation seed located in the bladder free floating. There was a raised ragged tumor at the bladder neck at the 5 o'clock position. The right ureteral orifice could be visualized and appeared within normal limits. Left orifice could not be visualized. There was mild diffuse erythema throughout the bladder with multiple healed tumor resection sites. There were no other papillary tumors noted other than the one on the floor at the bladder neck. At this point, the 17-Puerto Rican scope was removed while leaving the wire in place. A 22-Puerto Rican scope was then obtained. It was passed again over the wire. There was some resistance in the prostatic urethra. However, with the wire in place, the scope was able to be advanced through the strictured area into the bladder. Bladder was then drained and the wire was then removed. A 5-Puerto Rican Pollack catheter was then obtained. It was advanced through the cystoscope and guided into the right ureteral orifice. Contrast was then instilled into the right collecting system during real-time fluoroscopy. The right ureter was moderately dilated down to an area just above the orifice about 1 cm above. There were no filling defects seen and contrast was noted to be draining through this area. However, given the ureteral dilation and mild hydronephrosis, decision was made to re-pass a stent. There were no obvious filling defects noted in the kidney as well. A nephrostomy tube had been removed. At this point, the Pollack catheter was reintroduced into the orifice, a sensor wire was obtained. It was passed through the catheter and guided up the ureter under direct vision until it coiled in the upper collecting system. The open-ended catheter was then removed and a 6 x 24 stent was then obtained. The stent was passed through the cystoscope over the wire into the right ureter. It was advanced proximally under direct fluoroscopic guidance until it was in at the appropriate position. When the stent was in place, the guidewire was then removed. A coil was seen in the renal pelvis on fluoroscopy. A coil was seen in the bladder on cystoscopy. At this point, a grasping forceps was passed. The prostatic seed was then removed. It was sent to pathology separately as specimen. A second seed was also noted, which was removed and sent to pathology. The grasping forceps was then removed and a cold cup biopsy forceps was passed. The lesion noted at the 5 o'clock position was then excised using cold cup forceps and sent to pathology as specimen. A Bugbee electrode was then passed and the biopsy site was fulgurated along with an area of surrounding mucosa. A few of the areas of erythema were also cauterized using the Bugbee electrode. At this point, a final inspection was made. There were no other suspicious lesions noted. There was good hemostasis from the biopsy site and from some prior oozing from the erythematous mucosa. At this point, the procedure was completed, the bladder was drained. The cystoscope was removed. A third seed had been able to be irrigated out of the bladder, which was also sent to pathology as specimen. At this point, a 20-Puerto Rican two-way Sims catheter was placed with some difficulty, but it was able to be passed into the bladder and placed to straight drainage. The patient tolerated the procedure well. He was taken to the recovery room awake and in stable condition. Ascencion Lara MD
--- NOTE | 2017-10-05 23:01 | CON ---
DATE: 10/05/2017 HISTORY OF PRESENT ILLNESS: This 82-year-old male was admitted to the [facility] for elective cystoscopy and right retrograde cystogram for multiple medical problems including history of left nephrectomy from renal cell cancer as well as bladder cancer, prostate cancer, and history of renal failure secondary to obstructive uropathy in the recent past. The patient needs cystoscopy to assess status of bladder cancer and if any further intervention is necessary. PAST MEDICAL HISTORY: Also significant for stable atherosclerotic heart disease, chronic hypertension, hyperlipidemia, degenerative arthritis, and allergic rhinitis. OUTPATIENT MEDICATIONS: Include Flonase nasal spray daily, Lasix 40 mg p.o. daily, Monopril 20 mg p.o. b.i.d., Cardizem CD 240 mg p.o. daily, Flomax 0.4 mg p.o. daily, Zocor 20 mg p.o. daily, and Lopressor 50 mg p.o. b.i.d. SOCIAL HISTORY: The patient is a former smoker, a nondrinker and a non IV drug misuser. 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 ALLERGIES: HAS NO KNOWN ALLERGIES TO MEDICATION. FAMILY HISTORY: Noncontributory. REVIEW OF SYSTEMS: HEAD: No headache or seizure. EYE: No change in visual acuity. : No hearing loss. THROAT: No swallowing difficulty. NECK: No stiffness. CARDIAC: Stable atherosclerotic heart disease status post coronary artery stent. PULMONARY: No cough. No hemoptysis. GI: No hematemesis. No melena. : As per HPI. ENDOCRINOLOGICAL: Hyperlipidemia. MUSCULOSKELETAL: Degenerative arthritis. NEUROLOGICAL: No knowledge of stroke or seizure. PHYSICAL EXAMINATION: VITAL SIGNS: Temperature 97.2, respirations 18, pulse 53, blood pressure 166/81 with a pulse ox of 99%. HEAD: Normocephalic, atraumatic. EYES: No icterus. EARS: Clear. THROAT: Noninjected. NECK: Supple. HEART: Regular S1, S2. LUNGS: Clear. ABDOMEN: Soft. EXTREMITIES: No edema. SKIN: Without rash. NEUROLOGICAL: Intact. PSYCHOLOGICAL: Alert. VASCULAR: Legs warm to touch. LABORATORY DATA: White count 6000, hemoglobin 13.2, hematocrit 41.5, platelets 96,000. Manual platelet count 140,000. Sodium 147, K 4.4, chloride 108, bicarb 30, BUN of 21, creatinine 1.4, random blood sugar of 92. IMPRESSION: An 82-year-old male with history of bladder cancer, history of renal failure secondary to obstructive uropathy for which the patient required a percutaneous right nephrostomy in the past that has since been discontinued with history of prostate cancer, left renal cell cancer that required nephrectomy, history of recurrent bladder cancer, chronic hypertension, stable atherosclerotic heart disease, hyperlipidemia, degenerative arthritis, and allergic rhinitis. PLAN: The plan is to proceed with cystoscopy and retrograde pyelogram of his right kidney to ensure that the ureter remains patent and that there has been no recurrence of bladder cancer. Based on the results, additional testing and workup will be entertained. The patient will continue medications as outlined and all of the above will be discussed with Dr. Lara from Urology in detail. This was reviewed with the patient, family, and nursing. All questions were answered. Diann Reyna MD ENIO
== END 2017-10-05 14:20 | disposition home or self-care (01) ==
LOC: SDS 06:43
PROVIDERS: ATTEND Urology
DX: C67.9 Malignant neoplasm of bladder, unspecified (principal); C61 Malignant neoplasm of prostate; E78.5 Hyperlipidemia, unspecified; I25.10 Atherosclerotic heart disease of native coronary artery without angina pectoris; I12.9 Hypertensive chronic kidney disease with stage 1 through stage 4 chronic kidney disease, or unspecified chronic kidney disease; N18.9 Chronic kidney disease, unspecified; J30.9 Allergic rhinitis, unspecified; N13.30 Unspecified hydronephrosis; N35.9 Urethral stricture, unspecified; Z87.891 Personal history of nicotine dependence; Z85.528 Personal history of other malignant neoplasm of kidney; Z90.5 Acquired absence of kidney
CPT/HCPCS: 36415; 52224; 52332; 74420; 80048; 85025; 88300; 88307; A4358; C1769; C2617; J0696; J1100; J1170; J1580; J2405; J2704; J3010; J7120 ×2; Q9966

== ENCOUNTER 2017-10-21 10:29 | Emergency (ER) | payer MEDICARE, BC ==
[2017-10-21 10:44] VITALS: TEMP 97.8; BMI 23.5
[2017-10-21] MEDS ORDERED: Iohexol 240 (50 ml) ONE (10:59)
[2017-10-21] MEDS ORDERED: Sodium Chloride 0.9% 1,000 ML IV SCH (11:00)
--- NOTE | 2017-10-21 11:00 | ED PDOC ---
Arrival/HPI - General Time Seen by Provider: 10/21/17 10:39 Historian: Patient, Family (daughter), Other (PMD) - History of Present Illness Narrative History of Present Illness (Text): 10/21/17 10:54 Patient is a 82 year old male whose past medical history includes nephrectomy presents to the Emergency department at 's instruction for abdominal pain evaluation. called stating that the patient has been complaining of abdominal pain with associated nausea and vomiting. Blood work was done 2 days ago and found his WBC 17.4, hemoglobin 13.7, and creatinine 1.3. Dr. Reyna is requesting CT of abdomen and pelvis with contrast. Patient is present with his daughter and states that 3 days ago he started feeling tired and had 2 episodes of non-bilious and non-bloody vomiting after PO fluids. he currently feels tired but denies any weakness. He denies history of UTI. Patient denies any lightheadedness, current abdominal pain, diarrhea, fever, or changes in his bowel habits. Patient also states his urine looks normal and denies any increased urinary frequency. PMD: Time/Duration: < week Symptom Onset: Sudden Symptom Course: Unchanged Context: Home Past Medical History - Provider Review Nursing Documentation Reviewed: Yes - Infectious Disease Hx of Infectious Diseases: None - Cardiac Hx Pacemaker: No - Pulmonary Hx Chronic Obstructive Pulmonary Disease (COPD): No - Neurological Hx Paralysis: No - Renal Hx Renal Disorder: Yes - Hematological/Oncological Hx Blood Transfusions: No - Musculoskeletal/Rheumatological Hx Musculoskeletal Disorders: No - Gastrointestinal Hx Gastroesophageal Reflux: Yes - Genitourinary/Gynecological Hx Genitourinary Disorders: Yes (ca prost 1995/kidney 1991/bladder 2016) Hx Reproductive Disorders: Yes (hx ca prostate 1995) - Psychiatric Hx Emotional Abuse: No Hx Physical Abuse: No Hx Substance Use: No - Surgical History Hx Cardiac Catheterization: Yes Hx Coronary Stent: Yes (X 1) Other/Comment: left renal CA with resection - Anesthesia Hx Anesthesia Reactions: Yes (NAUSEA/VOMITING-RECEIVES ZOFRAN PRIOR TO PROCEDURES) Hx Malignant Hyperthermia: No - Suicidal Assessment Feels Threatened In Home Enviroment: No Family/Social History - Physician Review Nursing Documentation Reviewed: Yes Family/Social History: No Known Family HX Smoking Status: Former Smoker Hx Alcohol Use: Yes (social) Hx Substance Use: No Hx Substance Use Treatment: No Allergies/Home Meds Allergies/Adverse Reactions: Allergies No Known Allergies Allergy (Verified 10/21/17 10:47) Home Medications: Home Meds Medication Instructions Recorded Confirmed Fluticasone Propionate 0.05 mg NS DAILY 11/12/15 10/21/17 Fosinopril Sodium 20 mg PO BID 11/12/15 10/21/17 Tamsulosin HCl [Flomax] 0.4 mg PO QPM 11/12/15 10/21/17 [id number] CD [Cardizem CD] 240 mg PO DAILY 04/08/17 10/21/17 Furosemide [Lasix] 40 mg PO DAILY 06/16/17 10/21/17 Metoprolol Tartrate [Lopressor] 50 mg PO BID 07/22/17 10/21/17 Simvastatin [Zocor] 20 mg PO DAILY 07/22/17 10/21/17 Review of Systems - Review of Systems Constitutional: absent: Fevers Gastrointestinal: Nausea, Vomiting. absent: Abdominal Pain, Diarrhea Genitourinary Male: absent: Frequency, Hematuria Neurological: Other ((-)Lightheadedness) Physical Exam Vital Signs Reviewed: Yes Vital Signs Temp Pulse Resp BP Pulse Ox 10/21/17 15:26 97.8 F 95 H 20 129/78 96 10/21/17 12:56 97.8 F 97 H 18 148/76 98 10/21/17 10:43 97.8 F 97 H 18 144/74 97 Temperature: Afebrile Blood Pressure: Normal Pulse: Regular Respiratory Rate: Normal Appearance: Positive for: Well-Appearing Mental Status: Positive for: Alert and Oriented X 3 Finger Stick Blood Glucose: 133 - Systems Exam Head: Present: Atraumatic, Normocephalic Pupils: Present: PERRL Extroacular Muscles: Present: EOMI Conjunctiva: Present: Normal Mouth: Present: Moist Mucous Membranes Neck: Present: Normal Range of Motion Respiratory/Chest: Present: Clear to Auscultation, Good Air Exchange. No: Respiratory Distress, Accessory Muscle Use Cardiovascular: Present: Regular Rate and Rhythm, Normal S1, S2. No: Murmurs Abdomen: No: Tenderness, Distention, Peritoneal Signs, Rebound, Guarding Back: Present: Normal Inspection. No: CVA Tenderness Upper Extremity: Present: Normal Inspection. No: Cyanosis, Edema Lower Extremity: Present: Normal Inspection. No: Edema Neurological: Present: GCS=15, CN II-XII Intact, Speech Normal Skin: Present: Warm, Dry, Normal Color. No: Rashes Psychiatric: Present: Alert, Oriented x 3, Normal Insight, Normal Concentration Medical Decision Making ED Course and Treatment: 10/21/17 11:03 Impression: Patient is a 82 year old male who presents to the Emergency department as recommended by his PMD for abdominal pain and abnormal blood work evaluation Differential Diagnosis included but are not limited to: Infection vs. Electrolyte abnormality Plan: --Venous blood gas --Abdominal and pelvis CT with IV and PO contrast --EKG --labs --blood work --Chest X-ray --Blood and urine culture --Urinalysis --IV fluids -- Reassess and disposition Prior Visits: Notes and results from previous visits were reviewed. Progress Notes: 10/21/17 11:06 EKG shows NSR at 93 BPM with normal axis and intervals. Interpreted by me. 10/21/17 11:51 Chest X-ray: Creator : Bobby June MD IMPRESSION: No acute infiltrate. No acute cardiovascular changes in the interval. Limited elevation left hemidiaphragm noted in the interval. 10/21/17 12:43 On reevaluation patient is in no acute distress. Patient's blood work appears to have improved when compared to blood work done by 2 days ago. 10/21/17 14:[address] with contrast: IMPRESSION: 1. Interval right double-J ureteral stent in position with mild hydroureteronephrosis persisting from indeterminate etiology. No radiodense urolithiasis is identified throughout the right ureter and consider possible distal right ureteral stricture or potential right ureter vessel junction lesion. Urinary bladder is partially decompressed and otherwise unremarkable appearing. 2. Prior left nephrectomy. 3. Prior radiation seed implants to the prostate gland reiterated. 10/21/17 14:[address] Lara, patient's Urologist, who I reviewed the case and the CT with. He is aware of stricture, elevated Creatinine, and other CT findings. He recommends outpatient f/u with him as scheduled. - Lab Interpretations Lab Results: 10/21/17 11:25 10/21/17 11:25 Lab Results 10/21/17 15:08: Urine Color Yellow, Urine Appearance Turbid, Urine pH 6.0, Ur Specific [place] 1.015, Urine Protein 100 H, Urine Glucose (UA) Negative, Urine Ketones Negative, Urine Blood Large H, Urine Nitrate Positive H, Urine Bilirubin Negative, Urine Urobilinogen 0.2, Ur Leukocyte Esterase Large H, Urine RBC Tntc, Urine WBC Tntc, Urine Bacteria Few 10/21/17 11:25: Sodium 144, Chloride 104, Potassium 3.9, Carbon Dioxide 27, Anion Gap 16, BUN 36 H, Creatinine 1.8 H, Est GFR ( Amer) 44, Est GFR ( Non-Af Amer) 36, Random Glucose 144 H, Calcium 8.7, Phosphorus 3.5, Magnesium 2.6 H, Total Bilirubin 1.1, AST 21, ALT 39, Alkaline Phosphatase 54, Total Protein 6.5, Albumin 3.4, Globulin 3.1, Albumin/Globulin Ratio 1.1 10/21/17 11:25: pO2 27 L, VBG pH 7.36, VBG pCO2 51.0, VBG HCO3 28.8 H, VBG Total CO2 30.4 H, VBG O2 Sat (Calc) 56.3, VBG Base Excess 2.4 H, VBG Potassium 4.0, Sodium 140.0, Chloride 106.0, Glucose 151 H, Lactate 1.4, FiO2 21.0, Venous Blood Potassium 4.0 10/21/17 11:25: PT 12.9 H, INR 1.12 H, APTT 28.7 10/21/17 11:25: WBC 7.3 D, RBC 4.65, Hgb 12.9 L, Hct 39.3 L, MCV 84.5 D, MCH 27.7, MCHC 32.8, RDW 14.3, Plt Count 105 L, MPV 11.1 H, Gran % 80.8 H, Lymph % ( Auto) 9.2 L, Colbert % (Auto) 9.2 H, Eos % (Auto) 0.7 L, Baso % (Auto) 0.1, Gran # 5.85, Lymph # (Auto) 0.7 L, Colbert # (Auto) 0.7 H, Eos # (Auto) 0.1, Baso # (Auto ) 0.01 I have reviewed the lab results: Yes - RAD Interpretation Radiology Orders: 10/21/17 10:53 CHEST PORTABLE [RAD] Stat 06/27/18 10:56 ABD & PELVIS PO CONTRAST ONLY [CT] Stat [employer]: Radiologist - EKG Interpretation Interpreted by ED Physician: Yes Type: 12 lead EKG - Medication Orders Current Medication Orders: Discontinued Medications Ciprofloxacin (Cipro) 500 mg PO ONCE STA PRN Reason: Protocol Stop: 10/21/17 14:53 Last Admin: 10/21/17 15:07 Dose: 500 mg Sodium Chloride (Sodium Chloride 0.9%) 1,000 mls @ 150 mls/hr IV .[id number] GUILLERMINA Last Admin: 10/21/17 11:39 Dose: 150 mls/hr eMAR Start Stop Document 10/21/17 11:39 OCS (Rec: 10/21/17 11:39 OCS [id number]) Intravenous Solution Start Date 10/21/17 Start Time 11:39 - Scribe Statement The provider has reviewed the documentation as recorded by the Scribe Corky Bagley Provider Scribe Attestation: All medical record entries made by the Scribe were at my direction and personally dictated by me. I have reviewed the chart and agree that the record accurately reflects my personal performance of the history, physical exam, medical decision making, and the department course for this patient. I have also personally directed, reviewed, and agree with the discharge instructions and disposition. Disposition/Present on Arrival - Present on Arrival Any Indicators Present on Arrival: Yes History of DVT/PE: No History of Uncontrolled Diabetes: No Urinary Catheter: Yes (2wf and right nephrostomy) History of Decub. 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 Your provider was Simon Walton DO and you were treated for WEAKNESS, UTI . The emergency medical care you received today was directed at your acute symptoms. If you were prescribed any medication, please fill it and take as directed. It may take several days for your symptoms to resolve. Return to the Emergency Department if your symptoms worsen, do not improve, or if you have any other problems. Please contact your doctor or call one of the physicians/clinics you have been referred to that are listed on the Patient Visit Information form that is included in your discharge packet. Bring any paperwork you were given at discharge with you along with any medications you are taking to your follow up visit. Our treatment cannot replace ongoing medical care by a primary care provider outside of the emergency department. Thank you for allowing the [facility] team to be part of your care today. If you had an X-Ray or CT scan: A Radiologist will review the ED reading if any change in treatment is needed we will contact you. If you had a blood, urine, or wound culture: It will take several days for the results, if any change in treatment is needed we will contact you. If you had an STI test: It will take 48 hours for the results. Please call after 1 week if you have not heard back. Prescriptions: Ciprofloxacin [Cipro] 500 mg PO Q12 #14 tab Referrals: Diann Reyna MD [Family Provider] - Follow up with primary Ascencion Lara MD [Staff Provider] - Follow up with primary Forms: Rijuven (Swedish), WORK NOTE
--- NOTE | 2017-10-21 11:25 | RAD ---
HISTORY: Sepsis Patient COMPARISON: Portable chest 06/12/2017. FINDINGS: LUNGS: No active pulmonary disease. Improved inspiratory volume noted. PLEURA: No significant pleural effusion identified, no pneumothorax apparent. CARDIOVASCULAR: Normal. OSSEOUS STRUCTURES: No significant abnormalities. VISUALIZED UPPER ABDOMEN: Mildly elevated left hemidiaphragm. Surgical clips right upper quadrant abdomen. OTHER FINDINGS: None. IMPRESSION: No acute infiltrate. No acute cardiovascular changes in the interval. Limited elevation left hemidiaphragm noted in the interval.
[2017-10-21 11:35] LABS: VENOUS BLOOD GAS BASE EXCESS 2.4 mmol/L (0.0-2.0); VENOUS BLOOD GAS PO2 27 mm/Hg (30-55); VENOUS BLOOD PH 7.36 (7.32-7.43)
[2017-10-21 11:45] LABS: BASO # 0.01 K/mm3 (0.0-2.0); BASO % 0.1 % (0.0-3.0); EOS # 0.1 (0.0-0.7); EOS % 0.7 % (1.5-5.0); GRAN # 5.85 (1.4-6.5); GRAN % 80.8 % (50.0-68.0); HEMOGLOBIN 12.9 g/dL (14.0-18.0); LYMPH # 0.7 (1.2-3.4); LYMPH % 9.2 % (22.0-35.0); MEAN CELL VOLUME 84.5 fl (80.0-105.0); MEAN CORPUSCULAR HEMOGLOBIN 27.7 pg (25.0-35.0); MEAN CORPUSCULAR HGB CONC 32.8 g/dl (31.0-37.0); MEAN PLATELET VOLUME 11.1 fl (7.0-11.0); MONO # 0.7 (0.1-0.6); MONO % 9.2 % (1.0-6.0); RBC 4.65 10^6/uL (3.5-6.1); RED CELL DISTRIBUTION WIDTH 14.3 % (11.5-14.5); WHITE BLOOD COUNT 7.3 10^3/ul (4.5-11.0)
[2017-10-21 11:59] LABS: ALB/GLOB RATIO 1.1 (1.1-1.8); ALBUMIN 3.4 g/dL (3.0-4.8); CALCIUM 8.7 mg/dL (8.4-10.5)
[2017-10-21 12:09] LABS: PROTHROMBIN TIME 12.9 SECONDS (9.4-12.5)
[2017-10-21 12:10] LABS: INR 1.12 (0.93-1.08); PARTIAL THROMBOPLASTIN TIME 28.7 Seconds (25.1-36.5)
--- NOTE | 2017-10-21 13:07 | CARD ---
APPROVED REPORT EKG Measurement Heart [id number] <Conclusion> Normal sinus rhythm Normal ECG
--- NOTE | 2017-10-21 14:24 | CT ---
PROCEDURE: CT Abdomen and Pelvis with contrast HISTORY: gi symptoms COMPARISON: Noncontrast abdomen and pelvis CT 06/14/2017. TECHNIQUE: Helical CT of the abdomen and pelvis was performed without oral or intravenous contrast as per referring physician request Contrast dose: None Radiation dose: Total exam DLP = 408.27 mGy-cm. This CT exam was performed using one or more of the following dose reduction techniques: Automated exposure control, adjustment of the mA and/or kV according to patient size, and/or use of iterative reconstruction technique. FINDINGS: LOWER THORAX: Limited bilateral lower lobe bronchiectasis is appreciated as well as trace emphysema and limited bilateral basilar dependent atelectasis, left greater than right. Borderline hiatal hernia. Trace pericardial thickening or effusion seen inferiorly. LIVER: Unremarkable. No gross lesion or ductal dilatation. GALLBLADDER AND BILE DUCTS: Unremarkable. PANCREAS: Unremarkable. No gross lesion or ductal dilatation. SPLEEN: Trace peripheral calcifications reiterated spleen which is otherwise unremarkable appearing. ADRENALS: Unremarkable. No mass. KIDNEYS AND URETERS: Right double-J ureteral stent is now in position however there is persistent right hydroureteronephrosis although no radiodense calculus seen throughout the right ureter. Consider possible distal right ureteral stricture or possible urinary bladder lesion near the ureterovesical junction. Prior left nephrectomy apparent with no mass identified in the left renal fossa. VASCULATURE: Unremarkable. No aortic aneurysm. BOWEL: Bowel is not appear obstructed. Opacified small bowel loops appear unremarkable. Retained fecal material obscures the colon appearing [id number]-ml-[id number] volume at the right greater than left large-bowel. APPENDIX: Normal appendix medial to the cecum. PERITONEUM: Unremarkable. No free fluid. No free air. LYMPH NODES: Unremarkable. No enlarged lymph nodes. BLADDER: Urinary bladder is only mildly distended. No radiodense urolithiasis identified in the bladder. REPRODUCTIVE: Numerous radiation seed implants are again seen in the region of the prostate gland. No fracture or destructive bony lesion appreciable with stable grade 1 spondylolisthesis identified at L5-S1. BONES: No acute fracture. OTHER FINDINGS: None. IMPRESSION: 1. Interval right double-J ureteral stent in position with mild hydroureteronephrosis persisting from indeterminate etiology. No radiodense urolithiasis is identified throughout the right ureter and consider possible distal right ureteral stricture or potential right ureter vessel junction lesion. Urinary bladder is partially decompressed and otherwise unremarkable appearing. 2. Prior left nephrectomy. 3. Prior radiation seed implants to the prostate gland reiterated.
[2017-10-21 15:23] LABS: URINE APPEARANCE TURBID (CLEAR); URINE BILIRUBIN NEGATIVE (NEGATIVE); URINE BLOOD LARGE (NEGATIVE); URINE COLOR YELLOW (YELLOW); URINE GLUCOSE (UA) NEGATIVE (NEGATIVE); URINE LEUKOCYTE ESTERASE LARGE Leu/uL (NEGATIVE); URINE PROTEIN 100 mg/dL (<30 mg/dL); URINE UROBILINOGEN 0.2 E.U./dL (<1 E.U./dL)
[2017-10-21 15:29] LABS: URINE BACTERIA FEW (NEG); URINE RBC TNTC /hpf (0-2); URINE WBC TNTC /hpf (0-6)
[2017-10-21 15:31] VITALS: BP 129/78; PULSE 95; RESP 20; O2SAT 96
--- NOTE | 2017-10-22 16:40 | CON ---
DATE OF EXAM: 10/21/2017 EMERGENCY ROOM EVALUATION HISTORY OF PRESENT ILLNESS: I examined this 82-year-old male on 10/21/2017 in the [facility] ER. I had called him to come for further evaluation. I had seen him earlier in the week including 10/19/2017 for complaints of nausea, vomiting and weakness. After my office exam, which showed no fever, no acute abdominal issues, I received a call from the laboratory earlier this morning that his white blood cell count was 17,400 and that his creatinine was 1.8. I asked the patient to come to the [facility] ER for further evaluation of the above. At present, he is still complaining of weakness and deconditioning. However, according to his daughter, Dora who was present with him at his bedside in the emergency room, her father was now able to eat and hold down food and fluids. They both denied any fever, chills, chest pain or shortness of breath and the patient states his last bowel movement was earlier today and was with a small amount of formed brown stool. PAST MEDICAL HISTORY: The patient's past medical history is significant for stable atherosclerotic heart disease, chronic hypertension, chronic obstructive pulmonary disease, allergic rhinitis. He has a history of chronic hyperlipidemia, degenerative arthritis, benign prostate hypertrophy and history of left nephrectomy for renal cell carcinoma, ongoing bladder cancer and prostate cancer. His urological issues are handled by Dr. Ascencion Lara. He is status post a recent cystoscopy and right ureteral stent replacement for previous history of obstructive hydronephrosis in the setting of ureteral stricture as well as bladder cancer. MEDICATIONS: On outpatient medication review, the patient takes occasional Flonase, Monopril, Flomax, Cardizem CD, Lasix, Lopressor and Zocor. ALLERGIES: THE PATIENT DENIES ANY ALLERGIES TO MEDICATION. SOCIAL HISTORY: He is a former smoker, a social drinker and non IV drug misuser. 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 FAMILY HISTORY: Noncontributory. REVIEW OF SYSTEMS: Constitutional review: No active fever, chills or rigors at present. Head review: No headache or knowledge of seizure. Eye review: No change in visual acuity. Ear review: No hearing loss. Throat review: No swallowing difficulty. Neck review: No stiffness. Cardiac review: Chronic hypertension, stable atherosclerotic heart disease and history of coronary artery stenting in the past. Pulmonary: History of chronic obstructive pulmonary disease. No hemoptysis. GI: Recent nausea and vomiting. No diarrhea. No hematemesis. No melena. : As per HPI. Vascular: No claudication. Psychological: Chronic anxiety. Neurological: No knowledge of stroke. Endocrinological: Hyperlipidemia. Musculoskeletal: Degenerative arthritis. Skin: No rash. PHYSICAL EXAMINATION: VITAL SIGNS: The patient's vital signs were temperature of 97.8, respirations 18, pulse 97, blood pressure 144/74, pulse ox 97% on room air. HEENT: Head normocephalic, atraumatic. Eyes: No icterus. Ears: Clear. Throat: Noninjected. NECK: Supple. HEART: Regular S1, S2. No pathological rubs, murmurs or gallops. LUNGS: Clear to auscultation. ABDOMEN: Soft. Audible bowel sounds throughout. No rebound. No guarding. No tenderness. No palpable organomegaly. No CVA tenderness. EXTREMITIES: No clubbing, no cyanosis, no edema. SKIN: Improved skin turgor. No rash. No ulcerations. VASCULAR: Legs warm to touch. PSYCHOLOGICAL: Alert and oriented x3. NEURO: Grossly intact. LABORATORY DATA: White count 7300, hemoglobin 12.9, hematocrit 39.3, platelets 105,000. PT/INR 1.12, PTT 28.7. Sodium 144, K 3.9, chloride 104, bicarb 27, BUN 36, creatinine 1.8, random blood sugar 144. Phosphorous 3.5, normal; calcium 8.7, normal; magnesium 2.6. Bilirubin 1.1, AST 21, ALT 39, alk phos 54, albumin 3.4. Urinalysis showed few bacteria. Chest x-ray was reviewed. It showed no active infiltrate, no pneumonia, no pneumothorax. Abdominopelvic CT was reviewed. It showed a recently replaced double-J ureter stent now in position. No radio-opaque calculi were seen. Mild hydronephrosis was noted. Prior left nephrectomy was noted and prior radiation seed implants with prostate gland were seen as well. EKG showed a normal sinus rhythm with a pulse rate of 93. IMPRESSION: An 82-year-old male, status post recent gastroenteritis, now improved with comorbidities of acute on chronic renal failure in the setting of improving dehydration, history of chronic hypertension, sinusitis, chronic obstructive pulmonary disease, stable atherosclerotic heart disease, history of left nephrectomy for renal cell carcinoma, bladder cancer, prostate cancer and chronic renal failure stage 3, hyperlipidemia, benign prostate hypertrophy, controlled hypertension. PLAN: As discussed with the patient; daughterDora at bedside and emergency room physician, Dr. Simon Walton, medical doctor will be to discharge this patient to home. He will be encouraged to continue current medications as outlined. I have instructed the patient and daughter to increase fluid intake to minimum of 1 L daily and to advance diet as tolerated to soft bland. He will be monitored by his daughter in his home and has a scheduled followup appointment in my office on 10/26/2017 and he has been advised for any change in signs and symptoms to present directly to [facility] ER. Greater than 60 minutes was spent in the care and management, examination, review of orders and x-rays and labs and discussion of this patient's case with himself and daughter at bedside. All questions were answered. Diann Reyna MD ENIO
== END 2017-10-21 15:26 | disposition home or self-care (01) ==
LOC: ED 10:29
DX: N39.0 Urinary tract infection, site not specified (principal); R53.1 Weakness
CPT/HCPCS: 71045; 74176; 80053; 81001; 82803; 83735; 84100; 85025; 85610; 85730; 87040; 87086; 93005; 99285; J7030; Q9966

== ENCOUNTER 2017-12-10 15:37 | Day surgery (SDC) | payer MEDICARE, BC ==
[2017-12-10 16:08] VITALS: BMI 20.3
--- NOTE | 2017-12-10 17:04 | ED PDOC ---
Arrival/HPI - History of Present Illness Time/Duration: 4-6 hours Symptom Course: Unchanged Activities at Onset: Other (Presented to urologist's office) Context: Sitting <Clifton Abreu - Last Filed: 12/10/17 18:04> <Simon Walton - Last Filed: 12/10/17 18:14> - General Chief Complaint: Male Genitourinary Time Seen by Provider: 12/10/17 16:15 - History of Present Illness Narrative History of Present Illness (Text): 12/10/17 17:00 PGY-[address] Walton Pt is an 82 year old male with PMHx Renal CA c/p L nephrectomy/ureterectomy, prostate CA s/p radioactive seed implants, recent excision and fulguration of bladder tumor (10/05) who presents to ED for scheduled same day operative transurethral catheter placement. Pt sees Dr. Lara as his urologist and was at Dr. Lara's office earlier this afternoon for placement of a transurethral catheter which was unsuccessful 2/2 penile/urethral scarring from chronic catheterization. Dr. Lara had the patient present to the ED today so that the patient could have pre-operative workup for a same day operative placement of transurethral catheter which Dr. Lara will perform this afternoon. The patient states he is able to urinate without discomfort, urgency, or increased frequency. Pt states his urine is yellow or clear and denies any blood in the urine. Pt denies any fevers or chills, abdominal pain, nausea, vomiting, flank or back pain. (Clifton Abreu) Past Medical History - Provider Review Nursing Documentation Reviewed: Yes - Infectious Disease Hx of Infectious Diseases: None - Cardiac Hx Pacemaker: No - Pulmonary Hx Chronic Obstructive Pulmonary Disease (COPD): No - Neurological Hx Paralysis: No - HEENT Hx HEENT Disorder: No - Renal Hx Renal Disorder: Yes - Endocrine/Metabolic Hx Endocrine Disorders: No - Hematological/Oncological Hx Blood Transfusions: No - Integumentary Hx Dermatological Disorder: No - Musculoskeletal/Rheumatological Hx Musculoskeletal Disorders: No - Gastrointestinal Hx Gastroesophageal Reflux: Yes - Genitourinary/Gynecological Hx Genitourinary Disorders: Yes (ca prost 1995/kidney 1991/bladder 2016) Hx Reproductive Disorders: Yes (hx ca prostate 1995) - Psychiatric Hx Emotional Abuse: No Hx Physical Abuse: No Hx Substance Use: No - Surgical History Hx Cardiac Catheterization: Yes Hx Coronary Stent: Yes (X 1) Other/Comment: left renal CA with resection - Anesthesia Hx Anesthesia Reactions: Yes (NAUSEA/VOMITING-RECEIVES ZOFRAN PRIOR TO PROCEDURES) Hx Malignant Hyperthermia: No - Suicidal Assessment Feels Threatened In Home Enviroment: No <Clifton Abreu - Last Filed: 12/10/17 18:04> Family/Social History - Physician Review Nursing Documentation Reviewed: Yes Family/Social History: No Known Family HX Smoking Status: Former Smoker Hx Alcohol Use: Yes (social) Hx Substance Use: No Hx Substance Use Treatment: No <Clifton Abreu - Last Filed: 12/10/17 18:04> Allergies/Home Meds <Clifton Abreu - Last Filed: 12/10/17 18:04> <Simon Walton - Last Filed: 12/10/17 18:14> Allergies/Adverse Reactions: Allergies No Known Allergies Allergy (Verified 10/21/17 10:47) Home Medications: Home Meds Medication Instructions Recorded Confirmed Fluticasone Propionate 0.05 mg NS DAILY 11/12/15 10/21/17 Fosinopril Sodium 20 mg PO BID 11/12/15 10/21/17 Tamsulosin HCl [Flomax] 0.4 mg PO QPM 11/12/15 10/21/17 diltiaZEM CD [Cardizem CD] 240 mg PO DAILY 04/08/17 10/21/17 Furosemide [Lasix] 40 mg PO DAILY 06/16/17 10/21/17 Metoprolol Tartrate [Lopressor] 50 mg PO BID 07/22/17 10/21/17 Simvastatin [Zocor] 20 mg PO DAILY 07/22/17 10/21/17 Review of Systems - Review of Systems Constitutional: Normal. absent: Fatigue, Fevers Eyes: Normal. absent: Vision Changes, Photophobia ENT: Normal. absent: Sore Throat, Rhinorrhea Respiratory: Normal. absent: SOB, Cough, Wheezing Cardiovascular: Normal. absent: Chest Pain, Palpitations Gastrointestinal: Normal. absent: Abdominal Pain, Stool Changes, Constipation, Diarrhea, Nausea, Vomiting Genitourinary Male: Normal, Other (+reports inability to pass catheter this morning 2/2 scarring). absent: Dysuria, Frequency, Hematuria, Urinary Output Changes Musculoskeletal: Normal. absent: Back Pain, Neck Pain Skin: Normal. absent: Rash, Pruritis Neurological: Normal. absent: Headache, Dizziness Endocrine: Normal. absent: Diaphoresis, Polyuria, Polydipsia <Clifton Abreu - Last Filed: 12/10/17 18:04> Physical Exam Vital Signs Reviewed: Yes Temperature: Afebrile Blood Pressure: Normal Pulse: Regular Respiratory Rate: Normal Appearance: Positive for: Well-Appearing. No: Non-Toxic Pain Distress: None Mental Status: Positive for: Alert and Oriented X 3 - Systems Exam Head: Present: Atraumatic, Normocephalic Pupils: Present: PERRL Extroacular Muscles: Present: EOMI Conjunctiva: Present: Normal. No: Injected Mouth: Present: Moist Mucous Membranes, Normal Lips, Normal Tounge Pharnyx: Present: Normal. No: ERYTHEMA, EXUDATE Neck: Present: Normal Range of Motion. No: JVD Respiratory/Chest: Present: Clear to Auscultation, Good Air Exchange. No: Respiratory Distress, Accessory Muscle Use, Wheezes Cardiovascular: Present: Regular Rate and Rhythm, Normal S1, S2. No: Murmurs Abdomen: Present: Normal Bowel Sounds. No: Tenderness, Distention, Peritoneal Signs, Rebound, Guarding Genitourinary Male: Present: Normal External Genitalia, Circumcised Penis. No: Lesions, Penile Discharge, Testicle Tenderness, Penile Swelling, Masses, Erythema, Testicle Swelling Back: No: CVA Tenderness Upper Extremity: Present: Normal Inspection, NORMAL PULSES. No: Cyanosis, Edema Lower Extremity: Present: Normal Inspection, NORMAL PULSES. No: Edema, Cyanosis Neurological: Present: GCS=15, CN II-XII Intact, Speech Normal Skin: Present: Warm, Dry, Normal Color. No: Rashes Psychiatric: Present: Alert, Oriented x 3 <Clifton Abreu - Last Filed: 12/10/17 18:04> Vital Signs Temp Pulse Resp BP Pulse Ox 12/10/17 17:58 98.1 F 73 18 165/85 H 98 12/10/17 17:43 98.1 F 73 18 165/85 H 98 12/10/17 16:08 97.6 F 70 18 133/68 98 12/10/17 16:07 97.6 F 70 18 133/68 98 Medical Decision Making - EKG Interpretation Interpreted by ED Physician: Yes Type: 12 lead EKG <Clifton Abreu - Last Filed: 12/10/17 18:04> <Simon Walton - Last Filed: 12/10/17 18:14> ED Course and Treatment: 12/10/17 17:20 Pre-op workup for operative placement of transurethral catheter under general anesthesia, in pt with extensive urologic hx: * CBC with dif, BMP, EKG, UA, type and screen (Clifton Abreu) Patient Seen With Resident: In agreement with resident note which contains more details about the patient. Patient was seen and evaluated with resident. Came up with plan and treatment together. EKG: Ordered, reviewed, and independently interpreted the EKG. Rate : 67 BPM Rhythm : NSR Interpretation : No ST-segment elevations or depressions, no T-wave inversions, normal intervals. Comparison : No previous EKG for comparison. 12/10/17 18:13 Patient noted to have a UTI. Patient was already in the SDS with Dr. Lara for procedure. We communicated to Milana pascal bead machine operator who will inform Dr. Lara about the UTI and he will tx with antibiotics. (Simon Walton) - Lab Interpretations Lab Results: 12/10/17 17:20 12/10/17 17:20 Lab Results 12/10/17 17:31: Blood Type Pending, Antibody Screen Pending, BBK History Checked No verified bt 12/10/17 17:20: Urine Color Yellow, Urine Appearance Turbid, Urine pH 6.5, Ur Specific [place] 1.020, Urine Protein 100 H, Urine Glucose (UA) Negative, Urine Ketones Negative, Urine Blood Large H, Urine Nitrate Positive H, Urine Bilirubin Negative, Urine Urobilinogen 0.2, Ur Leukocyte Esterase Moderate H, Urine RBC Tntc, Urine WBC 25 - 30, Urine Bacteria Few 12/10/17 17:20: Sodium 139, Potassium 4.1, Chloride 100, Carbon Dioxide 30, Anion Gap 14, BUN 31 H, Creatinine 1.5, Est GFR ( Amer) 54, Est GFR (Non- Af Amer) 45, Random Glucose 100, Calcium 8.9 12/10/17 17:20: WBC 5.2 D, RBC 4.34, Hgb 11.9 L, Hct 36.5 L, MCV 84.1, MCH 27.4 , MCHC 32.6, RDW 14.4, Plt Count 113 L, MPV 10.9, Gran % 73.0 H, Lymph % (Auto) 18.4 L, [place] % (Auto) 7.4 H, Eos % (Auto) 1.0 L, Baso % (Auto) 0.2, Gran # 3.78 , Lymph # (Auto) 1.0 L, [place] # (Auto) 0.4, Eos # (Auto) 0.1, Baso # (Auto) 0.01 - RAD Interpretation Radiology Orders: 12/10/17 18:08 FLUOROSCOPY UP TO 1 HOUR [RAD] Routine - EKG Interpretation EKG Interpretation (Text): 12/10/17 18:04 Normal EKG (Clifton Abreu) - Medication Orders Current Medication Orders: Hydromorphone HCl (Dilaudid) 0.5 mg IVP Q15M PRN PRN Reason: Pain, severe (8-10) Stop: 12/10/17 19:42 Sodium Chloride (Sodium Chloride 0.9%) 1,000 mls @ 15 mls/hr IV .Q24H GUILLERMINA Stop: 12/10/17 19:46 Disposition/Present on Arrival - Present on Arrival History of DVT/PE: No History of Uncontrolled Diabetes: No Urinary Catheter: Yes (2wf and right nephrostomy) History of Decub. Ulcer: No History Surgical Site Infection Following: None <Clifton Abreu - Last Filed: 12/10/17 18:04> - Present on Arrival Any Indicators Present on Arrival: Yes - Disposition Have Diagnosis and Disposition been Completed?: Yes Disposition Time: 17:31 Patient Plan: Admission <Simon Walton - Last Filed: 12/10/17 18:14> - Disposition Diagnosis: UTI (urinary tract infection), Urinary retention Disposition: HOSPITALIZED Condition: GOOD
[2017-12-10] MEDS ORDERED: Iohexol 240 (50 ml) ONE ×2 (17:36→17:37)
[2017-12-10] MEDS ORDERED: Lidocaine 2% Jelly (Uro-Jet) ONE (17:36)
[2017-12-10] MEDS ORDERED: HYDROmorphone 0.5 mg/0.5 ml ISec IVP PRN (17:42)
[2017-12-10] MEDS ORDERED: Sodium Chloride 0.9% 1,000 ML IV SCH (17:45)
[2017-12-10 17:48] LABS: BASO # 0.01 K/mm3 (0.0-2.0); BASO % 0.2 % (0.0-3.0); EOS # 0.1 (0.0-0.7); GRAN # 3.78 (1.4-6.5); HEMOGLOBIN 11.9 g/dL (14.0-18.0); LYMPH % 18.4 % (22.0-35.0); MEAN CELL VOLUME 84.1 fl (80.0-105.0); MEAN CORPUSCULAR HEMOGLOBIN 27.4 pg (25.0-35.0); MEAN CORPUSCULAR HGB CONC 32.6 g/dl (31.0-37.0); MEAN PLATELET VOLUME 10.9 fl (7.0-11.0); MONO # 0.4 (0.1-0.6); MONO % 7.4 % (1.0-6.0); RBC 4.34 10^6/uL (3.5-6.1); RED CELL DISTRIBUTION WIDTH 14.4 % (11.5-14.5); WHITE BLOOD COUNT 5.2 10^3/ul (4.5-11.0)
[2017-12-10 17:49] LABS: PH,URINE 6.5 (4.7-8.0); URINE BILIRUBIN NEGATIVE (NEGATIVE); URINE BLOOD LARGE (NEGATIVE); URINE GLUCOSE (UA) NEGATIVE (NEGATIVE); URINE LEUKOCYTE ESTERASE MODERATE Leu/uL (NEGATIVE); URINE PROTEIN 100 mg/dL (<30 mg/dL); URINE UROBILINOGEN 0.2 E.U./dL (<1 E.U./dL)
[2017-12-10 17:51] LABS: URINE APPEARANCE TURBID (CLEAR); URINE COLOR YELLOW (YELLOW)
[2017-12-10 17:52] LABS: URINE BACTERIA FEW (NEG); URINE RBC TNTC /hpf (0-2); URINE WBC 25 - 30 /hpf (0-6)
[2017-12-10] MEDS ORDERED: Propofol 10 mg/ml Inj (20 ML) ONE (17:54)
[2017-12-10 17:59] LABS: CALCIUM 8.9 mg/dL (8.4-10.5)
[2017-12-10] MEDS ORDERED: cefTRIAXone (Rocephin) 1 gm Inj ONE (18:00)
--- NOTE | 2017-12-10 23:25 | OP ---
Copied To: Ascencion Lara MD Attending MD: Ascencion Lara MD PROCEDURE DATE: 12/10/2017 PREOPERATIVE DIAGNOSES: Urethral stricture, bladder cancer, prostate cancer. POSTOPERATIVE DIAGNOSES: Urethral stricture, bladder cancer, prostate cancer. PROCEDURE: Cystoscopy, insertion of Sims catheter, complex. ATTENDING SURGEON: Ascencion Lara MD ANESTHESIA: General. SPECIMENS: There were none. DRAINS: A 16-Sen[place]alese lumbee-tip Sims catheter. COMPLICATIONS: There were none. OPERATIVE FINDINGS: After informed consent was obtained, the patient was taken to the operating room, placed on the operating table, and anesthesia was administered. The patient was placed in the dorsal lithotomy position, and prepped and draped in the usual sterile fashion. The patient has a severe urethral stricture. Cystoscopy in my office earlier in the day, was unable to pass the cystoscope, and the patient having difficulty voiding, unable to pass filiform or a wire even under vision. Cystoscopy here was performed with an 8-Sen[place]alese semi-rigid ureteroscope with pressure irrigation. The ureteroscope was inserted into the patient's urethral meatus and advanced proximally under direct vision down to the ureter. In the prostatic urethra, there was a step-off of the urethra up and towards the 2 o'clock position. There was a large amount of ragged strictured tissue in this area. I was able to negotiate the turn in the urethra, and there was also stricture throughout the entire prostatic urethra. I was able to manipulate the ureteroscope into the bladder. The patient has a ureteral stent in place, which was visualized. There were no obvious large papillary tumors noted. There was a small amount of debris noted on the lower portion of the bladder. At this point, a Sensor wire was obtained. The Sensor wire was then passed through the ureteroscope and guided into the bladder under direct vision. When the wire was in place, the ureteroscope was then withdrawn. First, an 18-Sen[place]alese lumbee-tip catheter was passed. The lumbee-tip catheter could not be advanced into the bladder even over the wire through the strictured area. At this point, the lumbee-tip catheter was removed, and a 16-[place]alese lumbee-tip catheter was able to be passed although with some difficulty. It was eventually able to be passed over the wire into the bladder. The bladder was then drained. The wire was removed and the balloon was inflated. The bladder was then irrigated through the Sims catheter which is draining clear urine at this time, the catheter is in place and draining well. At this point, the procedure was completed. The patient was returned to supine position and taken to the recovery room awake in stable condition. Ascencion Lara MD
[2017-12-10 23:37] VITALS: BP 129/75; PULSE 129; RESP 18; TEMP 98.3; O2SAT 96
--- NOTE | 2017-12-11 08:24 | CARD ---
APPROVED REPORT Date of service: 12/10/2017 EKG Measurement Heart [id number] <Conclusion> Normal sinus rhythm Normal ECG
== END 2017-12-10 23:00 | disposition home or self-care (01) ==
LOC: ED 15:37 → SDS 17:37 → OR 17:37 → 5RNO 20:05 → SDS 23:00
PROVIDERS: ATTEND Urology
DX: N35.9 Urethral stricture, unspecified (principal); C67.9 Malignant neoplasm of bladder, unspecified; Z85.46 Personal history of malignant neoplasm of prostate; N39.0 Urinary tract infection, site not specified; R33.9 Retention of urine, unspecified; Z85.528 Personal history of other malignant neoplasm of kidney; Z90.5 Acquired absence of kidney; Z87.891 Personal history of nicotine dependence; Z95.5 Presence of coronary angioplasty implant and graft
CPT/HCPCS: 52000; 80048; 81001; 85025; 86850; 86900; J0696; J1170; J2001; J2405; J2704; J3010; J7030; Q9966

== ENCOUNTER 2018-02-15 08:16 | Day surgery (SDC) | payer MEDICARE, BC ==
[2018-02-03 11:06] VITALS: BMI 22.7
[2018-02-15 09:16] VITALS: RESP 18
[2018-02-15 09:16] LABS: INR 1.04; PARTIAL THROMBOPLASTIN TIME 29.7 Seconds (25.1-36.5)
[2018-02-15] MEDS ORDERED: Etomidate 20 mg/10ml Inj IV ONE (09:25)
[2018-02-15] MEDS ORDERED: Lidocaine 2% Jelly (Uro-Jet) ONE (10:20)
[2018-02-15] MEDS ORDERED: Iohexol 240 (50 ml) ONE (10:21)
[2018-02-15] MEDS ORDERED: Propofol 10 mg/ml Inj (20 ML) ONE (10:50)
[2018-02-15] MEDS ORDERED: cefTRIAXone (Rocephin) 1 gm Inj ONE (11:06)
[2018-02-15] MEDS ORDERED: Gentamicin 80 mg/2mL Inj. ONE (11:12)
[2018-02-15 12:44] VITALS: TEMP 97.5
[2018-02-15] MEDS ORDERED: Lactated Ringer's 1,000 ML IV SCH (12:45)
[2018-02-15 14:57] VITALS: O2SAT 97
[2018-02-15 15:25] VITALS: BP 118/57; PULSE 53
--- NOTE | 2018-02-15 16:02 | RAD ---
Date of service: 02/15/2018 PROCEDURE: Intraoperative Fluoroscopy. HISTORY: STENT INSERTION / REMOVAL RETROGRADE PYELOGRAM (RIGHT) FINDINGS: Fluoroscopic assistance was provided. Fluoroscopy time = 73.6 sec. Radiation dose = 13.52 mGy. Please refer to the operative report for additional details.
--- NOTE | 2018-02-15 22:37 | OP ---
PROCEDURE DATE: 02/15/2018 PREOPERATIVE DIAGNOSES: Bladder cancer, prostate cancer, urethral stricture, ureteral tumor, hydronephrosis, chronic kidney disease. POSTOPERATIVE DIAGNOSES: Bladder cancer, prostate cancer, urethral stricture, ureteral tumor, hydronephrosis, chronic kidney disease. PROCEDURES: Cystoscopy, excision and fulguration of bladder tumor, removal of right ureteral stent, right ureteroscopy, biopsy and fulguration of right ureteral tumor, ureteroscopy, right retrograde pyelogram, insertion of right ureteral stent. ATTENDING SURGEON: Ascencion Lara MD ANESTHESIA: General. SPECIMENS: Bladder biopsies and ureteral orifice biopsies were sent to Pathology separately as specimens. DRAINS: A 6 x 22 right ureteral stent. COMPLICATIONS: There were none. OPERATIVE FINDINGS: After informed consent was obtained, the patient was taken to the operating room and placed on the operating table, anesthesia was administered. The patient received IV antibiotics prior to start of the procedure. Sims catheter was removed and the patient was prepped and draped in the usual sterile fashion. At first, a 22-[place]ian cystoscope was placed in the patient's urethra and advanced proximally under direct vision until the bladder was entered. A full survey inspection of the bladder was then performed. There was a large ragged area on the posterior superior wall, possibly a bladder tumor; however, it did not appear classical papillary tumor. It was possible that this was mostly catheter reaction as the patient has had an indwelling catheter. The patient has recently been treated with BCG for recurrent bladder tumor. There was a stent noted exiting from the right ureteral orifice. There was some erythematous papillary growth noted just surrounding the right orifice and just inside the orifice as well. The patient had a left nephroureterectomy and no left ureteral orifice was seen. The prostate was noted to have a ragged stricture as noted previously on prior cystoscopies. There was no evidence of urethral tumor noted. At this point, a cold cup forceps was passed. Biopsies of the large erythematous mass on the posterior superior wall were taken and sent to Pathology as specimen. Bugbee electrode was then passed and the biopsy sites were then fulgurated. Using cold cup forceps, biopsies were taken inside the ureteral orifice and sent separately as specimen. Again, the Bugbee electrode was then passed and the biopsy sites were then cauterized. At this point, the cystoscope was removed and a 26-[place]ian resectoscope was then passed. Using a rollerball electrode, the large mass on the posterior superior wall was then completely fulgurated along with the area of surrounding normal mucosa. When hemostasis was complete and there were no remaining suspicious untreated areas, the resectoscope was then withdrawn. The cystoscope was then re-passed. A grasper was passed. The ureteral stent was grasped at its end and withdrawn through the urethral meatus. The scope was re-passed and a guidewire was then passed up along the stent until it coiled in the upper collecting system on fluoroscopy. The stent was then removed in its entirety through the urethral meatus. The bladder was then drained and the cystoscope was removed. An 8-[place]ian ureteroscope was then obtained and passed under direct vision through the urethra into the bladder. Following the wire, the ureteroscope was able to be passed into the ureteral orifice and advanced up the ureter without difficulty until the level of the renal pelvis was reached. There was some evidence of ureteritis; however, there were no papillary tumors or suspicious lesions noted. At this point, the ureteroscope was withdrawn under direct vision. The entire length of the ureter was inspected. There were some small raised erythematous patches noted just inside the orifice and a Bugbee electrode was passed through the ureteroscope and the small areas were again further cauterized. The ureteroscope was then removed in its entirety. The cystoscope was then re-passed while back loading the guidewire. A 5-[place] Helenian Midkiff catheter was then passed through the scope over the guidewire and into the ureter. Contrast was then instilled into the system for retrograde pyelogram. There was some fullness of the kidney noted likely from reflux up the prior stent. There were no large papillary or small papillary filling defects noted throughout the kidney or the collecting system. Contrast was further instilled into the system while withdrawing the ureteral catheter. Again, there were no filling defects noted in the renal pelvis, upper collecting system or throughout the ureter. When in the distal ureter, the guidewire was then re-passed until it coiled in the upper collecting system and the open-ended catheter was removed. A 6 x 22 stent was then obtained. It was then passed through the cystoscope over the wire and into the right ureter. The stent was advanced proximally under direct and fluoroscopic guidance until it was in proper position. When in proper position, the guidewire was removed. A coil was seen in the renal pelvis on fluoroscopy. A coil was seen in the bladder on cystoscopy. At this point, the procedure was complete, the bladder was drained. The cystoscope was removed. A 20-[place] two-way Sims catheter was then passed and placed to straight bladder irrigation. The patient tolerated the procedure well and was taken to the recovery room awake in stable condition. Ascencion Lara MD
== END 2018-02-15 17:15 | disposition home or self-care (01) ==
LOC: SDS 08:16
PROVIDERS: ATTEND Urology
DX: C67.4 Malignant neoplasm of posterior wall of bladder (principal); C61 Malignant neoplasm of prostate; N13.30 Unspecified hydronephrosis; I12.9 Hypertensive chronic kidney disease with stage 1 through stage 4 chronic kidney disease, or unspecified chronic kidney disease; N28.89 Other specified disorders of kidney and ureter; N18.9 Chronic kidney disease, unspecified; N35.919 Unspecified urethral stricture, male, unspecified site; I10 Essential (primary) hypertension; I25.10 Atherosclerotic heart disease of native coronary artery without angina pectoris; I25.2 Old myocardial infarction
CPT/HCPCS: 36415; 52224; 52332; 52354; 76000; 85610; 85730; 88305; C1758; C1769; C2617; J0131; J0696; J1580; J2001; J2704; J3010; J7120 ×2; Q9966

== ENCOUNTER 2018-04-12 06:51 | Day surgery (SDC) | payer MEDICARE, BC ==
[2018-04-12 07:46] VITALS: BMI 22.7
--- NOTE | 2018-04-12 09:04 | RAD ---
Date of service: 04/12/2018 HISTORY: pre op surgery COMPARISON: Portable chest 10/21/2017. FINDINGS: LUNGS: No active pulmonary disease. PLEURA: No significant pleural effusion identified, no pneumothorax apparent. CARDIOVASCULAR: No aortic atherosclerotic calcification present. Normal cardiac size. No pulmonary vascular congestion. OSSEOUS STRUCTURES: No significant abnormalities. VISUALIZED UPPER ABDOMEN: Stable limited left hemidiaphragm elevation, etiology indeterminate. Incidental proximal segment right double-J ureteral stent identified. OTHER FINDINGS: None. IMPRESSION: Stable limited left hemidiaphragm elevation. No acute infiltrate, pleural effusion or pneumothorax bilaterally. No pulmonary vascular congestion.
[2018-04-12] MEDS ORDERED: Vancomycin 1gm in NS 250ml 1 GM/250 ML BAG IVPB STA (09:27)
[2018-04-12] MEDS ORDERED: HYDROmorphone 0.5 mg/0.5 ml ISec IVP PRN (09:50)
[2018-04-12] MEDS ORDERED: Iohexol 240 (50 ml) ONE (09:51)
[2018-04-12] MEDS ORDERED: cefTRIAXone (Rocephin) 1 gm Inj ONE (09:51)
[2018-04-12] MEDS ORDERED: Propofol 10 mg/ml Inj (20 ML) ONE (09:56)
[2018-04-12] MEDS ORDERED: Rocuronium 10 mg/ml (5 ml) ONE (09:57)
[2018-04-12] MEDS ORDERED: Midazolam 2 MG/2 ML VIAL ONE (09:57)
[2018-04-12] MEDS ORDERED: Lactated Ringer's 1,000 ML IV SCH (10:00)
[2018-04-12] MEDS ORDERED: Glycopyrrolate 0.2 mg/ml (2ml vial) ONE (11:07)
[2018-04-12] MEDS ORDERED: Neostigmine Methylsulfate 3mg/3ml Syringe IV ONE (11:08)
[2018-04-12 12:28] VITALS: TEMP 97.3
[2018-04-12 13:04] VITALS: O2SAT 95
[2018-04-12 13:46] VITALS: BP 117/60; PULSE 52; RESP 18
--- NOTE | 2018-04-12 22:04 | OP ---
PROCEDURE DATE: 04/12/2018 PREOPERATIVE DIAGNOSES: Bladder cancer, ureteral cancer, urethral stricture, chronic kidney disease, hydronephrosis. POSTOPERATIVE DIAGNOSES: Bladder cancer, ureteral cancer, urethral stricture, chronic kidney disease, hydronephrosis. PROCEDURES: Cystoscopy, excision and fulguration of bladder tumors, right stent removal, right ureteroscopy, fulguration of ureteral tumors, right retrograde pyelogram, insertion of a right ureteral stent. ATTENDING SURGEON: Ascencion Lara MD ANESTHESIA: General. SPECIMEN: Bladder tumor fragments were sent to Pathology. DRAINS: A 20-[place] two-way Sims catheter. COMPLICATIONS There were none. OPERATIVE FINDINGS: After informed consent was obtained, the patient was taken to the operating room, placed on the operating table, and anesthesia was administered. The patient was placed in dorsal lithotomy position and prepped and draped in the usual sterile fashion. The patient received IV vancomycin prior to start of the procedure. The patient's indwelling Sims catheter was removed. A 21-[place] cystoscope was placed in the patient's urethra and advanced proximally under direct vision until the bladder was entered. A full survey inspection of bladder was then performed which revealed a stent exiting from the right ureteral orifice. No left ureteral orifice was visualized. There were multiple raised lesions on the posterior wall of the bladder which appear to be recurrent bladder cancer, possibly some Sims reaction on reaction to the indwelling stent. At this point, a cold cup forceps was passed. The multiple lesions were resected using the cold cup forceps, and the pieces were sent to Pathology as specimen. After all the tumor had been treated, a Bugbee electrode was passed, and the sites were then cauterized along with areas of surrounding normal mucosa. The patient has grade II trabeculation and a small capacity shrunken bladder. There was some oozing from multiple sites which was also cauterized at this time. After all visible lesions in the bladder were treated, attention was turned towards the right ureteral orifice. There was some ragged tissue around the orifice. Using the Bugbee electrode, this was all fulgurated with the stent in place. After this was done, a sensor wire was obtained, and then it was passed through the cystoscope. It was guided into the right ureteral orifice and up the ureter under fluoroscopic guidance with leaving the stent in place. A grasping forceps was then passed. The stent was then grasped and removed in its entirety while leaving the wire in place. An 8-[place] semi-rigid ureteroscope was then obtained. It was passed into the bladder under direct vision and into the right ureter. The ureteroscope was then advanced proximally under direct vision until the kidney was entered. There was some ragged growth in the distal ureter inside the orifice. At the 3 o'clock position, there was a narrowed area with no papillary tumor, but appeared bulging and in the upper part of the distal ureter, there was some erythema of the mucosa in this area. The upper and mid ureters appeared within normal limits. The renal pelvis was examined and appeared within normal limits. At this point, the ureteroscope was then withdrawn under direct vision into the mid ureter. Contrast was then instilled into the system through the scope. There were no obvious large filling defects in the renal pelvis or in the collecting system noted. The upper ureter appeared normal. The scope was then withdrawn to the distal ureter, and further contrast was instilled. At this point, an electrode Bugbee was then passed through the ureteroscope. Under direct vision, the papillary growth in the distal ureter at the 3 o'clock position was completely cauterized along with areas of surrounding normal mucosa. The erythematous patch in the upper portion of the lower ureter was then also completely fulgurated using the electrode. At this point, the procedure was completed. The ureteroscope was withdrawn. The cystoscope was re-passed while backloading the guidewire. A new 6 x 22 stent was then obtained. It was passed through the cystoscope and into the right ureter under direct vision. The stent was then advanced proximally under direct and fluoroscopic guidance until it was in at the appropriate depth. When the stent was in proper position, the guidewire was removed. A coil was seen in the renal pelvis on fluoroscopy. A coil was seen in bladder on cystoscopy. At this point, the procedure was complete. The bladder was drained. The cystoscope was removed. A 20-[place] two-way Sims catheter was then passed and placed to straight drainage. The patient tolerated the procedure well. He was taken to the recovery room awake and in stable condition. Ascencion Lara MD
--- NOTE | 2018-04-13 09:36 | RAD ---
Date of service: 04/12/2018 PROCEDURE: Fluoroscopy up to 1 hr HISTORY: STENT REMOVAL / INSERTION / RETROGRADE PYELOGRAM (RIGHT) COMPARISON: TECHNIQUE: Fluoroscopy was provided in the operating room. 21.9 sec of fluoro time. Cumulative dose 6.22 mGy. Twenty images submitted FINDINGS: The study shows removal of a pre-existing right ureteral stent. A ureteral scope and wire are seen in the right ureter and collecting system. There are 2 separate sites of stricture in the right ureter proximally and distally. The final films show replacement of the right ureteral stent. IMPRESSION: As above
== END 2018-04-12 14:44 | disposition home or self-care (01) ==
LOC: SDS 06:51
PROVIDERS: ATTEND Urology
DX: C67.9 Malignant neoplasm of bladder, unspecified (principal); C66.9 Malignant neoplasm of unspecified ureter; N13.30 Unspecified hydronephrosis; N35.819 Other urethral stricture, male, unspecified site; E11.22 Type 2 diabetes mellitus with diabetic chronic kidney disease; I12.9 Hypertensive chronic kidney disease with stage 1 through stage 4 chronic kidney disease, or unspecified chronic kidney disease; N18.9 Chronic kidney disease, unspecified

== ENCOUNTER 2018-06-21 12:43 | Outpatient (CLI) | payer MEDICARE, BC | END 2018-06-21 12:44 | disposition home or self-care (01) | LOC: RAD 12:43 ==

== ENCOUNTER 2018-06-23 09:48 | Outpatient (CLI) | payer MEDICARE, BC | END 2018-06-23 09:49 | disposition home or self-care (01) | LOC: PAT 09:48 ==

== ENCOUNTER 2018-07-19 09:41 | Day surgery (SDC) | payer MEDICARE, BC ==
--- NOTE | 2018-07-19 12:18 | CON ---
DATE OF CONSULTATION: 07/19/2018 MEDICAL CONSULTATION HISTORY OF PRESENT ILLNESS: This 83-year-old male was admitted to [facility] on 07/19/2018. He has a past medical history of left nephrectomy for renal cell carcinoma, recurrent bladder cancer and prostate cancer. The patient also has a history of atherosclerotic heart disease, status post myocardial infarction and coronary artery stents and also acute on chronic renal failure secondary to obstructive uropathy with bladder cancer, obstructing his right ureteral orifice in the past. This then required ureteral stents and a nephrostomy tube that has subsequently been discontinued. The patient also has chronic hypertension, hyperlipidemia, degenerative arthritis, and allergic rhinitis. The patient is admitted for cystoscopy and retrograde studies by Dr. Ascencion Lara today and to further evaluate the patient's situation with recurrent bladder cancer and the need for indwelling Sims. MEDICATIONS: The patient's outpatient medications include Cardizem CD 240 mg p.o. daily, Flomax 0.4 mg p.o. daily, Zocor 20 mg p.o. daily, Lopressor 50 mg b.i.d., Lasix 40 mg p.o. daily, Monopril 20 mg p.o. b.i.d., and Flonase 1 spray to each nostril daily p.r.n. ALLERGIES: THE PATIENT HAS NO KNOWN ALLERGIES TO MEDICATION. SOCIAL HISTORY: He is a nondrinking, nonsmoking, non-IV drug misuser. 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 FAMILY HISTORY: Noncontributory. REVIEW OF SYSTEMS: CONSTITUTIONAL REVIEW: There were no fever or chills. HEAD: No headache or seizure. EYES: No change in visual acuity. EARS: No hearing loss. THROAT: No swallowing difficulty. NECK: No stiffness. CARDIAC: No chest pain. No palpitation. Chronic hypertension. PULMONARY: No cough. No hemoptysis. GASTROINTESTINAL: No hematemesis. No melena. GENITOURINARY: He has a history of left nephrectomy for renal cell carcinoma, right renal obstructive uropathy, history of chronic renal insufficiency, history of bladder cancer and prostate cancer. ENDOCRINOLOGICAL: Hyperlipidemia. HEMATOLOGICAL: Chronic thrombocytopenia, stable. NEUROLOGICAL: No knowledge of stroke. PHYSICAL EXAMINATION: VITAL SIGNS: Temperature 97.1, respirations 20, pulse 64, blood pressure 149/77, pulse ox 96% on room air. HEENT: Head: Normocephalic, atraumatic. Eyes: No icterus. Ears: Clear. Throat: Noninjected. NECK: Not supple. HEART: S1, S2. LUNGS: Clear. ABDOMEN: Soft. EXTREMITIES: No edema. SKIN: Without rash. NEUROLOGICAL: Intact. PSYCHOLOGICAL: Alert and oriented x3. VASCULAR: Legs warm to touch. LABORATORY DATA: White count 5700, hemoglobin 11.9, hematocrit 38.1, platelets 110,000. Sodium 141, K 4.3, chloride 106, bicarb 30, BUN 39, creatinine 2.6, random blood sugar 103, calcium 9.2. Bilirubin 0.7, AST 17, ALT 10, and alk phos 59. EKG showed a sinus rhythm and chest x-ray showed no active disease. IMPRESSION AND PLAN: An 83-year-old male with multiple medical problems as listed above, now on schedule for cystoscopy for surveillance of recurrent bladder tumor and to do a retrograde of his right ureteral orifice to make sure there is no obstructive uropathy. Based on his findings, additional diagnostic workup and testing will be entertained. All of the above was discussed with Dr. Ascencion Lara and the patient and family. All questions were answered Diann Reyna MD MTDD
[2018-07-19] MEDS ORDERED: Iohexol 240 (50 ml) ONE (13:23)
[2018-07-19] MEDS ORDERED: Lidocaine 2% Jelly (Uro-Jet) ONE (13:23)
[2018-07-19] MEDS ORDERED: cefTRIAXone (Rocephin) 1 gm Inj ONE (13:23)
[2018-07-19] MEDS ORDERED: Midazolam 2 MG/2 ML VIAL ONE (13:31)
[2018-07-19] MEDS ORDERED: Propofol 10 mg/ml Inj (20 ML) ONE (13:31)
[2018-07-19] MEDS ORDERED: Gentamicin 80 mg in 0.9% NS 80 MG/100 ML BAG IVPB ONE (13:38)
[2018-07-19] MEDS ORDERED: ePHEDrine 50 mg/ml Inj ONE (13:40)
[2018-07-19] MEDS ORDERED: Lactated Ringer's 1,000 ML IV SCH (14:30)
[2018-07-19 15:34] VITALS: BMI 22.7
[2018-07-19 15:39] VITALS: TEMP 98.6
[2018-07-19 18:02] VITALS: BP 147/80; PULSE 78; RESP 20; O2SAT 97
--- NOTE | 2018-07-20 02:08 | OP ---
PROCEDURE DATE: 07/19/2018 PREOPERATIVE DIAGNOSES: Bladder cancer history, upper tract transitional cell carcinoma, right ureteral obstruction, history of right ureteral tumor, urethral stricture. POSTOPERATIVE DIAGNOSES: Bladder cancer, right hydroureteronephrosis, multiple bladder tumors, urethral stricture. PROCEDURES: Cystoscopy, removal of right ureteral stent, right retrograde pyelogram, insertion of right ureteral stent, bladder biopsies and fulguration, dilation of urethral stricture, insertion of Sims catheter complex. ANESTHESIA: General. ATTENDING SURGEON: Ascencion Lara MD SPECIMENS: Multiple bladder biopsies were sent to Pathology. DRAINS: A 20-Singaporean [place]-tip Sims catheter and an 8 x 20 right ureteral stent. COMPLICATIONS: There were none. OPERATIVE FINDINGS: After informed consent was obtained, the patient was taken to the operating room and placed on the operating room table. Anesthesia was administered. The patient received IV antibiotics prior to the start of the procedure. He was placed in the dorsal lithotomy position and prepped and draped in usual sterile fashion. First, a 22-Singaporean cystoscope was placed in the patient's urethra and advanced proximally under direct vision. There was a severe bulbar urethral stricture noted, which could not be bypassed with the scope. At this point, a sensor wire was obtained. The sensor wire was able to be passed through the cystoscope and guided past the obstruction and coiled in the bladder. A few attempts were made to pass the scope which were unsuccessful, which was then removed. A 17-Singaporean scope was obtained. The wire was back loaded on through the scope and by passing over the wire, the scope was able to be passed through the strictured area. The bladder was then drained and cystoscopy was performed. There was a stent noted exiting from the right ureteral orifice. A large portion of the stent was visible coiled in the bladder. On fluoroscopy, the upper limb was in the renal pelvis. There was an amount of papillary growth around the right ureteral orifice, difficult to tell if this is malignant or a reaction to the stent. There was some more papillary growth noted on the left floor, and also at the dome multiple patches of erythema. The patient has had BCG treatment as well as multiple prior resections. At this point, wire was re-passed and the cystoscope was removed. A 22-Singaporean scope was then passed. While back loading the wire, it was able to be passed over the wire at this point into the bladder. The wire was then removed. A grasping forceps was then passed and the ureteral stent was grasped on its end and withdrawn through the urethral meatus. A sensor wire was then passed through the stent, it was guided up the ureter under fluoroscopic guidance until it coiled in the upper collecting system. The stent which was removed was a 6 x 22. The cystoscope was then re-passed along with an open-ended ureteral catheter. The open-ended ureteral catheter was advanced into the ureter and the wire was then removed. A retrograde pyelogram was then performed by instilling contrast through the catheter into the ureter during real-time fluoroscopy. The ureter was dilated. There were multiple small filling defects. There was mild hydroureteronephrosis through the length of the ureter. It is difficult again to tell if this is presence of the ureteritis or possibly tumor or debris in the ureter. The patient has a solitary kidney. His other kidney was removed for upper tract transitional cell carcinoma. At this point, the stent was replaced. Given that the 22-Singaporean stent appeared to be too long, decision was made to place a 20-Singaporean stent. Given the hydroureteronephrosis which could be from obstruction or to be from reflux, an 8 x 20 stent was obtained. The stent was passed through the cystoscope over the guidewire and into the right ureter. The stent was advanced easily up the ureter until it was in proper position. When the stent was in proper position, guidewire was removed. A coil was seen in the renal pelvis on fluoroscopy. A smaller coil was noted in the bladder on cystoscopy. At this point, a cold cup forceps was passed. Biopsies of the papillary growth adjacent to the ureteral orifice were then taken and sent to Pathology. Biopsies were also taken of the previously mentioned papillary areas on the left floor and at the dome and all specimens were sent separately to Pathology. A Bovie electrode was then passed. The biopsy sites were then cauterized using the Bugbee electrode along with any noted papillary growth in that area. Patches of erythematous mucosa were also cauterized. At this point, a final inspection was made. There were no remaining untreated papillary tumors. The ureteral stent was in good position and apparently draining. At this point, the procedure was complete, the bladder was then drained and the cystoscope was removed. Attempts to pass an 18-Singaporean Sims catheter encountered some difficulty. Cystoscope again was placed in the urethra and a guidewire was passed under direct vision into the bladder. An 18-[place]an [place]-tip catheter was then passed over the wire and advanced into the bladder. The wire was then removed and the balloon was inflated. Bladder was then irrigated through the Sims catheter and was draining clear to lightly blood-tinged urine. At this point, the procedure was completed. The patient was returned to the supine position and taken to the recovery room awake and in stable condition. Ascencion Lara MD
--- NOTE | 2018-07-22 18:40 | RAD ---
Date of service: 07/19/2018 PROCEDURE: Retrograde pyelogram HISTORY: Renal obstruction COMPARISON: TECHNIQUE: 14.7 sec of fluoro time. Cumulative dose 4.04 mGy. Ten images were submitted FINDINGS: The study shows a focal stenosis in the right distal ureter. There is placement of a ureteral stent. IMPRESSION: As above
== END 2018-07-19 18:00 | disposition home or self-care (01) ==
LOC: SDS 09:41
PROVIDERS: ATTEND Urology
DX: C67.1 Malignant neoplasm of dome of bladder (principal); C67.2 Malignant neoplasm of lateral wall of bladder; I12.9 Hypertensive chronic kidney disease with stage 1 through stage 4 chronic kidney disease, or unspecified chronic kidney disease; N17.9 Acute kidney failure, unspecified; N18.9 Chronic kidney disease, unspecified; N35.919 Unspecified urethral stricture, male, unspecified site; N13.1 Hydronephrosis with ureteral stricture, not elsewhere classified; Z85.51 Personal history of malignant neoplasm of bladder; E78.5 Hyperlipidemia, unspecified; I25.10 Atherosclerotic heart disease of native coronary artery without angina pectoris; I25.2 Old myocardial infarction; Z79.899 Other long term (current) drug therapy; Z85.46 Personal history of malignant neoplasm of prostate; Z95.5 Presence of coronary angioplasty implant and graft; Z87.891 Personal history of nicotine dependence; Z90.5 Acquired absence of kidney
CPT/HCPCS: 52005; 52204; 52332; 74420; 88305; C1758 ×2; C1769 ×2; C2617; J0696; J1100; J1580; J2001; J2250; J2405; J2704; J2765; J3010; J7120 ×2; Q9966